=== PATIENT | female | born 1930 | race Caucasian/White ===

== ENCOUNTER 2017-08-08 14:51 | Inpatient (IN) | payer OTHER ==
[2017-08-08] VITALS (7 sets, daily range): BP systolic 124–159; BP diastolic 64–84; Ht 144.8 cm; Wt 53.6 kg
[~2017-08-08] VITALS: Ht 144.8 cm; Wt 53.6 kg
[~2017-08-08 14:51] MED LIST: A/B OTIC15 ML; CLARITIN10 MG PO; CLINDAMYCIN HC300 MG PO; COL100 PO; COUMADIN2 MG PO; DIG125 PO; ESCITALOPRAM10 M1 PO; LAC PO; LEVAQUIN750 MG PO; LISINOPRIL30 MG PO; NORCO1 TA2 PO; PRILOSEC40 MG PO; SINGULAIR10 MG PO; TEN50 PO; XARELTO20 M1 PO
--- NOTE | 2017-08-08 15:09 | NUR ---
EMT AT BEDSIDE FOR EKG
--- NOTE | 2017-08-08 15:10 | NUR ---
DR. WELDON AT BEDSIDE FOR MSE
--- NOTE | 2017-08-08 15:12 | NUR ---
RT AT BEDSIDE FOR ABG DRAW.
--- NOTE | 2017-08-08 15:13 | NUR ---
PT BIB DAUGHTER WITH C/O COUGH AND SOB. DAUGHTER REPORTS PATIENT HAS A DRY NON PRODUCTIVE COUGH. PT HAS RETRACTIONS AND HAS WHEEZES IN ALL MARTIN. PT O2 SAT ON RA IS 96%. PT DENIES ANY N/V/D. NO FEVERS AT HOME. PT IS TACHYPNIC. VITAL. SIGNS STABLE.
--- NOTE | 2017-08-08 15:16 | NUR ---
LAB AT BEDSIDE FOR BLOOD DRAW.
--- NOTE | 2017-08-08 15:38 | NUR ---
RT AT BEDSIDE FOR BREATHING TREATMENT.
--- NOTE | 2017-08-08 15:39 | NUR ---
LAB AT BEDSIDE FOR BLOOD CULTURE DRAW
[2017-08-08 15:41] LABS: BASOPHIL % 0.2 % (0-2); PLATELET COUNT 196 x10^3mcL (130-400); RED CELL DISTRIBUTION WIDTH 13.9 % (11.5-14.5)
[2017-08-08 15:51] LABS: CALCIUM 8.6 mg/dL (8.5-10.1); CARBON DIOXIDE 31.7 mmol/L (21-32); CHLORIDE SERUM 94 mmol/L (98-107); CREATININE SERUM 0.7 mg/dL (0.6-1.0); GLUCOSE SERUM 131 mg/dL (74-106); POTASSIUM SERUM 3.7 mmol/L (3.5-5.1); SODIUM SERUM 131 mmol/L (136-145)
--- NOTE | 2017-08-08 15:53 | NUR ---
RADIOLOGY AT BEDSIDE FOR PCXR
[2017-08-08 16:02] LABS: FREE THYROXINE INDEX 2.4 ug/dL (1.4-4.5); T4(THYROXINE) 6.9 ug/dL (4.7-13.3)
[2017-08-08 16:03] LABS: ALKALINE PHOSPHATASE 74 U/L (46-116); ALT/SGPT 13 U/L (14-59); AST/SGOT 20 U/L (15-37); BILIRUBIN TOTAL 1.3 mg/dL (0.20-1.00); C REACTIVE PROTEIN 11.7 mg/dL (<=0.9); TOTAL PROTEIN, SERUM 7.8 g/dL (6.4-8.2)
--- NOTE | 2017-08-08 16:07 | NUR ---
PT APPEARS TO BE RESTING COMFORTABLY. PT IS STILL TACHYPNIC WITH RETRACTIONS. RESPIRATIONS EVEN. O2 SAT 98% ON RA. VITAL SIGNS STABLE. NO SIGN OF ACCUTE DISTRESS.
[2017-08-08 16:11] LABS: CK-MB 0.9 ng/mL (0-3.6)
[2017-08-08 16:16] LABS: T3 TOTAL 0.78 ng/mL
[2017-08-08 16:26] LABS: ALBUMIN 3.3 g/dL (3.4-5.0)
[2017-08-08 16:33] LABS: ERYTHROCYTE SED RATE 40 mm/hr (0-30)
--- NOTE | 2017-08-08 16:52 | NUR ---
PT LUNG SOUNDS ARE WHEZZY IN ALL MARTIN. PT TACHYPENIC WITH RETRACTIONS. VITAL SIGNS STABLE. NO ACUTE DISTRESS NOTED. DAUGHTER AT BEDSIDE.
--- NOTE | 2017-08-08 17:06 | NUR ---
RT AT BEDSIDE FOR BREATHING TREATMENT.
[2017-08-08 17:40] LABS: MAGNESIUM 1.8 mg/dL (1.8-2.4); PHOSPHOROUS 2.4 mg/dL (2.5-4.9)
[2017-08-08] MEDS ORDERED: HYDROCHLOROTHIA25 MG PO (17:40)
--- NOTE | 2017-08-08 17:52 | NUR ---
REPORT GIVEN TO KOKI ON MED/TELE.
--- NOTE | 2017-08-08 18:00 | NUR ---
RECEIVED PT FROM ED VIA [facility], CAME IN DUE TO SOB AND COUGH. ALERT, AWAKE AND NON-VERBAL, ABLE TO FOLLOW SIMPLE COMMANDS. W/ RIGHT FACIAL DROOP. W/ RIGHT SIDED WEAKNESS. W/ NON-PRODUCTIVE COUGH. NO SOB NOTED, W/ CRACKLES AND WHEEZES NOTED ON AUSCULTATION, PLACED ON 2LPM/NC, O2 SAT=96%. DENIES CHEST PAIN/PRESSURE, NSR ON THE MONITOR. C/O DIARRHEAL EPISODES. W/ MILD SWELLING ON BLE. W/ BLANCHABLE REDNESS ON THE BUTTOCKS. IV SITES ON THE RFA AND LFA ARE PATENT AND INTACT. HOB ELEVATED AT 45 DEG. SIDE RAILS UPX2. CALL LIGHT ON REACH. ENDORSED.
--- NOTE | 2017-08-08 18:27 | NUR ---
PATIENT RESTING IN BED NO COMPLAINT, NO DISTRESS NOTED, IVF NS @ 100ML/HR STARTED ORDERED, DR. BAUTISTA PRESENT AT BEDSIDE INTERVIEW PATIENT; PATIENT NON-VERBAL; DTR NOT PRESENT AT THIS TIME. DTR PHONE # GIVEN TO DOCTOR. CALL LIGHT WITHIN REACH. BED LOW IN POSITION.
--- NOTE | 2017-08-08 19:40 | NUR ---
PT RESTING IN BED. ALERT AND AWAKE. VERBAL WITH SOFT SPEECH. [place]. ON O2 2L VIA NC. LUNGS WITH WHEEZING AND CRACKLES ON AUSCULTATION. RT PROTOCOL. NO S/S OF RESPIRATORY DISTRESS NOTED. ON TELE 14, SR. DENIES ANY CHEST PAIN. ABD SOFT AND FLAT. BOWEL SOUNDS ACTIVE. SKIN WARM AND DRY. IV SALINE LOCK INTACT TO RFA. IV NS INFUSING WELL TO LEFT FA. NO S/S OF INFECTION NOTED. NOTED EDEMA TO BLE. PULSES PALPABLE. DENIES ANY PAIN AT THIS TIME. NO S/S OF DISTRESS NOTED. FAMILY AT BEDSIDE. CALL LIGHT WITHIN REACH. WILL CONTINUE TO MONITOR.
--- NOTE | 2017-08-08 21:15 | NUR ---
RECEIVED CALL FROM [employer] AND STATES PT'S HR ELEVATED AT 130S, THEN WENT UP TO 170S. PT RESTING IN BED WITH EYES CLOSED. NO S/S OF RESPIRATORY DISTRESS NOTED ON O2 2L VIA NC. AROUSED WITH VERBAL AND TACTILE STIMULI. VS: BP 155/73, MAP 100, HR 130, 95% 2L O2 VIA NC. DENIES ANY CHEST PAIN. DR. BAUTISTA NOTIFIED AND AWARE. TENORMIN 25 MG PO GIVEN AND SWALLOWED WITHOUT DIFFICULTY. WILL CONTINUE TO MONITOR.
--- NOTE | 2017-08-08 22:15 | NUR ---
RECHECKED PT'S BP 124/74, MAP 90, HR 90. NO S/S OF DISTRESS NOTED. DR. BAUTISTA NOTIFIED AND AWARE. ALSO, UPDATED REGARDING EKG RESULTS.
--- NOTE | 2017-08-08 23:40 | NUR ---
RECEIVED CALL FROM [employer] STATING PT'S HR IN THE 130S. ARRIVED IN PT'S ROOM. PT RESTING IN BED WITH EYES CLOSED. REMAINS ON O2 2L VIA NC. NO S/S OF RESPIRATORY DISTRESS NOTED. DENIES ANY CHEST PAIN OR ANY PAIN. VS: BP 125/76, HR 129, 97% 2L O2 VIA NC. DR. BAUTISTA NOTIFIED AND AWARE.
--- NOTE | 2017-08-09 00:41 | NUR ---
PT RESTING IN BED WITH EYES CLOSED. BREATHING EQUAL AND UNLABORED. REMAINS ON O2 2L VIA NC. NO S/S OF RESPIRATORY DISTRESS NOTED. IV PATENT AND INFUSING WELL. NO ADVERSE REACTIONS NOTED FROM IV ZOSYN. RESTING COMFORTABLY WITH RELAXED FACIAL FEATURES. CALL LIGHT WITHIN REACH. WILL CONTINUE TO MONITOR.
--- NOTE | 2017-08-09 01:06 | NUR ---
PT'S HR STILL RANGING 120-130S. VS: BP 137/83, HR 130, 95% 2L O2 VIA NC. PT RESTING WITH EYES CLOSED. REMAINS ON O2 2L VIA NC WITH HOB ELEVATED. NO S/S OF RESPIRATORY DISTRESS NOTED. WILL CONTINUE TO MONITOR. DR. BAUTISTA NOTIFIED AND AWARE.
--- NOTE | 2017-08-09 03:30 | NUR ---
PT RESTING IN BED WITH EYES CLOSED. BREATHING EQUAL AND UNLABORED ON O2 2L VIA NC. NO S/S OF RESPIRATORY DISTRESS NOTED. IV PATENT AND INFUSING WELL. RESTING COMFORTABLY WITH RELAXED FACIAL FEATURES. BED IN LOW POSITION. SIDE RAILS UP. BED ALARM ON. CALL LIGHT WITHIN REACH. WILL CONTINUE TO MONITOR.
--- NOTE | 2017-08-09 05:31 | NUR ---
PT SLEPT WELL THROUGH THE NIGHT. CURRENTLY RESTING IN BED WITH EYES CLOSED. BREATHING EQUAL AND UNLABORED ON O2 2L VIA NC. NO S/S OF RESPIRATORY DISTRESS NOTED. DENIES ANY PAIN AT THIS TIME. NO GRIMACING OR MOANING NOTED. IV PATENT AND INFUSING WELL. VS: BP 124/77, HR 130, 98% 2L O2 VIA NC. DR. BAUTISTA NOTIFIED AND AWARE PT'S HR BEEN IN 130S. WILL CONTINUE TO MONITOR.
[2017-08-09 05:59] VITALS: BP 124/77
--- NOTE | 2017-08-09 07:15 | NUR ---
PT SEEN REST ON BED ALERT, ORIENTED TO PERSON. PT NO COMPLAIN OF PAIN AT THIS TIME. PT BREATHING ON O2 2L VIA NC. IV SITE PATENT, INTACT. IVF INFUSING WELL.
[2017-08-09 07:42] LABS: BASOPHIL % 0.1 % (0-2); PLATELET COUNT 170 x10^3mcL (130-400); RED CELL DISTRIBUTION WIDTH 13.7 % (11.5-14.5)
[2017-08-09 07:59] LABS: CALCIUM 8.2 mg/dL (8.5-10.1); CARBON DIOXIDE 28.1 mmol/L (21-32); CHLORIDE SERUM 96 mmol/L (98-107); CREATININE SERUM 0.8 mg/dL (0.6-1.0); GLUCOSE SERUM 166 mg/dL (74-106); MAGNESIUM 1.7 mg/dL (1.8-2.4); PHOSPHOROUS 2.8 mg/dL (2.5-4.9); POTASSIUM SERUM 3.7 mmol/L (3.5-5.1); SODIUM SERUM 134 mmol/L (136-145)
[2017-08-09 10:37] VITALS: BP 154/94
[2017-08-09 10:59] VITALS: BP 129/73
--- NOTE | 2017-08-09 12:31 | NUR ---
PT'S DAUGHTER AT BED SIDE. MADE HER AWARE PT'S ON AIR BORN PRECAUTION. INFECTION CONTROL STAFF MADE AWARE BY CHARGE NURSE.
--- NOTE | 2017-08-09 13:00 | NUR ---
PT IS TRANSFERED FOR AIR BORN PRECAUTION. PT'S REPORT GIVEN TO RECEIVING NURSE. AFB SPECIMEN X3 NOT COLLECTED BY THIS TIMEE AND RECEIVING NURSE AWARE. PT'S DAUGHTER AT BED SIDE. PER PT'S DAUGHTER 'S STATEMENT THAT PT IS HAVING PRODUCTIVE COUGH BUT NOT ABLE TO CLEAR SPUTUM BY COUGHING AND NO BLOOD COUGHING OUT SO FAR.
--- NOTE | 2017-08-09 13:13 | NUR ---
RECEIVED PT TRANSFER FROM [facility]. PT'S DAUGHTER AT BEDSIDE. NO APPARENT SIGNS OF ACUTE DISTRESS NTOED AT THIS TIME. IV TO RFA APPEARS PATENT AND INFUSING WELL. IVPB MG RIDER RUNNING AT THIS TIME. TELE #14 SHOWS HR OF 107, A SYMPTOMATIC. R SIDED WEAKNESS TO RUE, WITH CONTRACTURE TO RT HAND. CALL LIGHT WITHIN REACH. BED IN LOWEST POSITION. WILL CONTINUE TO MONITOR
--- NOTE | 2017-08-09 15:20 | NUR ---
ATTEMPTED TO COLLECT FIRST SPECIMEN OF AFB WITH RT VIA SUCTION, BUT WAS UNSUCCESSFUL. WILL ATTEMPT TO COLLECT SPUTUM AGAIN AT A LATER TIME. PT APPEARS EXHAUSTED AND WILL ALLOW FOR REST UNTIL NEXT TRY. CALL LIGHT WITHIN REACH. BED IN LOWEST POSITION. UA, LYTES, AND OSMALALITY COLLECTED AND SENT TO THE LAB. WILL CONTINUE TO MONITOR
[2017-08-09 16:06] LABS: microscopic required? YES; urine erythrocyte TRACE (NEGATIVE)
--- NOTE | 2017-08-09 16:32 | NUR ---
LEADS REPLACED. PT APPEARS TO BE HALF ASLEEP AND TIRED. AWAITING CT TO COME AND BARK FITTER PT. STATED THEY WOULD COME AROUND [phone]. PT HAS BEEN NPO SINCE AFTER HER LUNCH, WHICH WAS A BOWL OF SOUP AND JUICE
--- NOTE | 2017-08-09 17:37 | NUR ---
PPD GIVEN TO PT IN THE LFA. PT APPEARED TO TOLERATE WELL. WILL ENDORSE TO ONCOMING NURSE
[2017-08-09 17:45] VITALS: BP 149/59
--- NOTE | 2017-08-09 17:51 | NUR ---
RT RETURNED TO ATTEMPT TO COLLECT AFB SAMPLE AND WERE SUCCESSFUL. WILL SEND TO LAB
--- NOTE | 2017-08-09 18:00 | NUR ---
PT TAKEN DOWN FOR CT OF THE CHEST. NO APPARENT SIGNS OF ACUTE DISTRESS AT THIS TIME
--- NOTE | 2017-08-09 19:30 | NUR ---
PATIENT RECEIVED AWAKE, ALERT, AND ORIENTED TO SELF. FAMILY AT BEDSIDE. NO RESP DISTRESS NOTED. PATIENT DENIES SOB. IV SITE TO RIGHT FOREARM, LEAKING. WILL DC AND REINSERT. BED IN LOWEST POSITION. CALL LIGHT WITHIN REACH. WILL CONTINUE TO MONITOR.
[2017-08-09 20:35] VITALS: BP 136/54
[2017-08-10] VITALS (9 sets, daily range): BP systolic 122–212; BP diastolic 61–109
--- NOTE | 2017-08-10 05:01 | NUR ---
PATIENT RESTED THROUGHOUT THE NIGHT. NO DISTRESS NOTED. NO C/O SOB. NO RESP DISTRESS NOTED. ALL NEEDS MET. SAFETY AND COMFORT MEASURES MAINTAINED. BED IN LOWEST POSITION. CALL LIGHT WITHIN REACH. WILL CONTINUE TO MONITOR AND ENDORSE TO NEXT SHIFT NURSE.
--- NOTE | 2017-08-10 07:35 | NUR ---
SIZE STAMPER CALLED TO REPORT HR 130'S. PT AWAKE, EASILY AROUSABLE. RESP LABORED, AUDIBLE CRACKLES BILATERALLY WITH CONGESTED COUGH. RT PAGED FOR BREATHING TREATMENT. SAT 94% IN O2 @ 2L/MIN VIA NC. IV ON RFA, 20G, INTACT. INFUSING NS AT 93 ML/HR. ABD SOFT WITH ACTIVE BS IN ALL QUADS. INCONTINENT OF URINE, LINENS CHANGED AND GOOD PERICARE PROVIDED. FALL PRECAUTIONS IN PLACE. ON AIRBORNE ISOLATION PRECAUTIONS R/O TB. DENIES ANY PAIN OR DISCOMFORT AT THIS TIME. WILL CONTINUE TO MONITOR.
--- NOTE | 2017-08-10 07:45 | NUR ---
HR 141 ON MONITOR. PO DIGOXIN AND ATENOLOL GIVEN EARLY. VS: 98.6, 141, 22, 189/108, SAT 100% ON O2 @ 2L/MIN VIA NC. PT C/O MILD EPIGASTRIC DISCOMFORT. DENIES ANY CP/HARDY/DIZZINESS AT THIS TIME. DR WEIR PAGEGATED, AWAITING NEW ORDERS.
--- NOTE | 2017-08-10 07:58 | NUR ---
SPOKE WITH DR WEIR REGARDING HR, CURRENTLY 148 ON MONITOR WITH 1 EPISODE OF SVT UP TO 170'S. AWAITING NEW ORDERS.
--- NOTE | 2017-08-10 08:11 | NUR ---
RECEIVED NEW ORDER FOR CARDIZEM IV. CONVERTED TO AFIB/AFLUTTER, HR 98, PRIOR TO ADMINISTRATION, NOT GIVEN. DR WEIR AWARE. BP 165/99. PT DENIES ANY PAIN OR DISCOMFORT AT THIS TIME.
--- NOTE | 2017-08-10 09:02 | NUR ---
PT FOUND PALE/DIAPHORETIC AND TACHYPNEIC. EXTREMELY LABORED BREATHING WITH ACCESORY MUSCLE USE. AUDIBLE CRACKLES. RT AT BEDSIDE, PT PLACED ON BIPAP, SAT 94%. BP 212/109, HR 100. DR WEIR PAGED TO MAKE AWARE, AWAITING CALL BACK.
--- NOTE | 2017-08-10 09:07 | NUR ---
CALLED RESIDENT CALL PHONE. DR RAHMAN AND DR WEIR AT BEDSIDE TO EVALUATE. PT CURRENTLY ON BIPAP 12/, 18, FIO2 40%. O2 SAT 100%. RECEIVED NEW ORDER FOR SINGH AND LASIX IV.
--- NOTE | 2017-08-10 09:17 | NUR ---
MORPHINE IV AND LASIX IV GIVEN ORDERED, SEE EMAR. DR WEIR AND DR RAHMAN AT BEDSIDE. BP AFTER MEDS: 147/73, HR 94. PT AROUSABLE, OPENING EYES AND FOLLOWING COMMANDS. WILL CONTINUE TO MONITOR CLOSELY.
--- NOTE | 2017-08-10 09:20 | NUR ---
SINGH CATHETER INSERTED ORDERED, 16F. STERILE TECHNIQUE MAINTAINED. PT TOLERATED WELL.
--- NOTE | 2017-08-10 09:20 | NUR ---
SINGH CATHETER INSERTED ORDERED, 16F. STERILE TECHNIQUE MAINTAINED. PT TOLERATED WELL.
[2017-08-10 09:45] LABS: BASOPHIL % 0.3 % (0-2); PLATELET COUNT 209 x10^3mcL (130-400); RED CELL DISTRIBUTION WIDTH 13.9 % (11.5-14.5)
[2017-08-10 10:02] LABS: CALCIUM 7.4 mg/dL (8.5-10.1); CARBON DIOXIDE 28.9 mmol/L (21-32); CHLORIDE SERUM 97 mmol/L (98-107); CREATININE SERUM 0.8 mg/dL (0.6-1.0); GLUCOSE SERUM 174 mg/dL (74-106); POTASSIUM SERUM 3.3 mmol/L (3.5-5.1); SODIUM SERUM 133 mmol/L (136-145)
--- NOTE | 2017-08-10 10:37 | NUR ---
EKG SHOWS AFIB/AFLUTTER, DR WEIR AWARE. PT CURRENTLY ON XARELTO PO.
--- NOTE | 2017-08-10 11:35 | NUR ---
AIRBORNE PRECAUTIONS DC'D ORDERED.
--- NOTE | 2017-08-10 12:55 | NUR ---
PT CHANGED TO NC AT 3L/MIN BY RT, SAT 96%. PT TOLERATING WELL, RESP EVEN AND UNLABORED.
--- NOTE | 2017-08-10 13:05 | NUR ---
LACTIC ACID 2.6. DR WEIR MADE AWARE.
--- NOTE | 2017-08-10 14:30 | NUR ---
PT'S DAUGHTER VISITING AT BEDSIDE. PT REMAINS ON O2 @ 3L/MIN VIA NC, SAT 96% AND TOLERATING WELL.
--- NOTE | 2017-08-10 15:26 | NUR ---
INFECTION CONTROL NOTE: 86 year old female who was considered possible TB after abnormal chest x-ray. Patient had cough for 2 days prior to arrival and is negative for night sweats, weight loss or hemoptysis. CT scan done 08/09/17 shows " No definate evidence for cavitary lesions of the lung." There is atelectasis in the right lower lobe. Review by Dr Hoang on 08/09/17 States " No evidence of TB" and a diagnosis of aspiration pneumonia. [facility]
--- NOTE | 2017-08-10 15:40 | NUR ---
PT PLACED ON LOW AIR LOSS MATTRESS
--- NOTE | 2017-08-10 17:30 | NUR ---
PT ENCOURAGED TO EAT, CONTINUES WITH VERY POOR APPETITE. PT STATES SHE DOES NOT FEEL LIKE EATING.
--- NOTE | 2017-08-10 18:08 | NUR ---
PT RESTING COMFORTABLY, REMAINS ON O2 @ 3L/MIN VIA NC, SAT 98%. SINGH CATHETER DRAINING TO GRAVITY WITH PALE YELLOW URINE. DENIES ANY OTHER NEEDS AT THIS TIME. CALL LIGHT WITHIN REACH.
--- NOTE | 2017-08-10 20:38 | NUR ---
AWAKE AND VERBALLY RESPONSIVE. ABLE TO MAKE NEEDS KNOWN. ON TELE #14WITH PACED ON DEMENAD,IN AND OUT A-FB/FLUTTER. AWARE. DENEIS ANY CHEST PAIN/DISCOMFORT. ON 02 AT 3L/NC SATURATING AT 98%. NO SOB NOTED. WILL CONTINUE TO MONITOR.
[2017-08-11] VITALS (7 sets, daily range): BP systolic 138–180; BP diastolic 60–86
--- NOTE | 2017-08-11 00:01 | NUR ---
EYES CLOSED, NO FACIAL GRIAMCING NOTED. RESPIRATION EVEN AND UNLABORED. NO S/S OF PAIN/DISCOMFORT. BED IN LOWEST POSITION. CALL LIGHT WITHIN REACH.
--- NOTE | 2017-08-11 04:51 | NUR ---
BS =114, NO INSULIN COVERAGE GIVEN. NO S/S OF PAIN/DISCOMFORT. ALL NEEDS ATTENDED.
[2017-08-11 06:20] LABS: CALCIUM 7.7 mg/dL (8.5-10.1); CARBON DIOXIDE 33.2 mmol/L (21-32); CHLORIDE SERUM 100 mmol/L (98-107); CREATININE SERUM 0.7 mg/dL (0.6-1.0); GLUCOSE SERUM 116 mg/dL (74-106); MAGNESIUM 1.8 mg/dL (1.8-2.4); PHOSPHOROUS 2.1 mg/dL (2.5-4.9); POTASSIUM SERUM 3.8 mmol/L (3.5-5.1); SODIUM SERUM 137 mmol/L (136-145)
[2017-08-11 06:30] LABS: PLATELET COUNT 163 x10^3mcL (130-400); RED CELL DISTRIBUTION WIDTH 14.1 % (11.5-14.5)
[2017-08-11 06:52] LABS: BASOPHIL % 0 % (0-2)
--- NOTE | 2017-08-11 07:40 | NUR ---
REASSESSMENT DONE. PT IN FOWLERS. NO S/S OF PAIN. CRACKLES TO LEFT UPPER, LOWER LOBES ON AUSCULTATION. SINGH CATHETER IN PLACE 200ML YELLOW DARK. PT ON AIR MATTRESS. RIGHT HAND CONTRACTURE. IV INFUSING WELL TO RFA #20. BED IN LOWEST POSITION, CALL LIGHT WITHIN REACH.
--- NOTE | 2017-08-11 09:40 | NUR ---
PT WHEEZING BILAT WITH CRACKLES. BIPAP STARTED. PT TOLERATING THERAPY WELL.
--- NOTE | 2017-08-11 11:10 | NUR ---
PT ON BIPAP, WHEEZING BILAT, CRACKLES ON LEFT LOWER LOBE. IV INFUSING AT 20ML/HR. CALL LIGHT WITHIN REACH. FAMILY AT BEDSIDE.
--- NOTE | 2017-08-11 12:45 | NUR ---
PT OFF BIPAP. RR:18 NO DISTRESS AT MOMENT. EFFORTLESS BREATHING 3LNC. SPEECH THERAPIST IN FOR SWALLOW EVAL PT TOLERATING ACTIVITY. CALL LIGHT WITHIN REACH.
--- NOTE | 2017-08-11 13:20 | NUR ---
S: PATIENT SEEN DURING NOON MEAL. 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 VOCAL QUALITY HOARSE AND OF LOW VOLUME O: BEDSIDE SWALLOW EVALUATION A: PATIENT PRESENTS WITH MILD/MOD OROPHARYNGEAL PHASE DYSPHAGIA NO OVERT S/S OF ASPIRATION WITH PUREE/NECTAR THICK FOOD HX OF WEIGHT LOSS/MALNUTRITION DECREASED MENTATION INCREASED CONSOLIDATION IN RLL, BUT NO CONFIRMATION OF INFILTRATE, INSTEAD LUNG EMPYEMA/ATELECTASIS MISSING TEETH NASAL CANNULA, C/O OF SHORTNESS OF BREATH AND TODAY PATIENT COMPLAINED OF SHORTNESS OF BREATH WHILE EATING HER MEAL. P: ADVANCE DIET TO PUREE WITH NECTAR THICK LIQUIDS NO STRAWS ASPIRATION PRECAUTIONS/POSTED AT BEDSIDE CRUSH CRUSHABLE MEDS/PRESENT IN PUREE SUPERVISED P.O. IF PATIENT BECOMES SHORT OF BREATH DURING THE MEAL, STOP/RELAX, THEN RESUME MEAL STOP P.O. IF RESPIRATION RATE IS AT 30 BPM OR GREATER DIETARY CONSULT IN LIGHT OF HISTORY OF MALNUTRITION/WEIGHT LOSS THANK YOU FOR THIS REFERRAL. NO FURTHER SKILLED ST SERVICES ARE NEEDED AT THIS TIME. SARA MARCANO MA/MSLP
--- NOTE | 2017-08-11 17:20 | NUR ---
PT DENIES PAIN AT MOMENT, DENIES SOB, ON 3LNC WITH EFFORTLESS BREATHING. TOLERATING DIET WELL. SINGH CATH PATENT AND DRAINING WELL. IV PATENT, AND INFUSING WELL, BED IN LOWEST POSITION, CALL LIGHT WITHIN REACH.
--- NOTE | 2017-08-11 19:10 | NUR ---
AO X2-3. KOSOVAN SPEAKING. FAMILY MEMBER AT BEDSIDE. TELE #14, NSR WITH 1ST DEGREE. CRACKLES HEARD OVER LEFT LUNG, RIGHT LUNG CLEAR. ON NC @ 3L. RADIAL AND PEDAL PULSES PALPABLE, TRACE EDEMA TO BLE. BOWEL SOUNDS ACTIVE. SINGH CATHETER PRESENT, DARK YELLOW. RIGHT SIDED WEAKNESS WITH RIGHT SIDE FACIAL DROOP AND RIGHT HAND CONTRACTURE. BLANCHABLE REDNESS TO BUTTOCKS, HYDRAGUARD APPLIED. NO PAIN. NS @ 50 ML/HR TO RIGHT HAND, NO REDNESS OR SWELLING. BED IN LOW POSITION, CALL LIGHT IN REACH. INSTRUCTED TO CALL FOR ASSISTANCE.
[2017-08-12] VITALS (7 sets, daily range): BP systolic 136–190; BP diastolic 67–89
--- NOTE | 2017-08-12 00:56 | NUR ---
BREATHING EVEN AND UNLABORED, NO ACUTE DISTRESS NOTED. WILL CONTINUE TO MONITOR.
[2017-08-12 05:58] LABS: BASOPHIL % 0.4 % (0-2); PLATELET COUNT 181 x10^3mcL (130-400); RED CELL DISTRIBUTION WIDTH 13.4 % (11.5-14.5)
--- NOTE | 2017-08-12 06:08 | NUR ---
0500 B/P 177/70, GAVE [address] PEOPLES[address] NO OTHER ACUTE CHANGES DURING SHIFT. WILL ENDORSE TO ONCOMING RN.
[2017-08-12 06:25] LABS: CHLORIDE SERUM 99 mmol/L (98-107); CREATININE SERUM 0.5 mg/dL (0.6-1.0); GLUCOSE SERUM 108 mg/dL (74-106); PHOSPHOROUS 2.7 mg/dL (2.5-4.9); POTASSIUM SERUM 3.7 mmol/L (3.5-5.1); SODIUM SERUM 134 mmol/L (136-145)
--- NOTE | 2017-08-12 08:45 | NUR ---
DR. LARA MADE ROUNDS WITH OTHER MEDICAL STAFF. UPDATED PT. PLAN OF CARE.
--- NOTE | 2017-08-12 10:45 | NUR ---
AWAKE ALERT ORIENTED WITH PERIODS OF FORGETFULLNESS. PT. IS COOPERATIVE WITH STAFF. NO ACUTE RESPIRATORY DISTRESS NOTED. LEFT LUNG CRACKLES, RIGHT LUNG CLEAR. DENIES CHEST PAIN. SINGH CATHETER DRAINING YELLOW COLOR. RIGHT SIDED WEAKNESS, RIGHT HAND CONTRACTURE. IV INFUSING FLUIDS WELL. CONT. NC 3L.CONT. PLAN OF CARE. CALL LIGHT WITHIN REACH.
--- NOTE | 2017-08-12 11:05 | NUR ---
PT TAKEN OFF O2 FOR 10 MINUTES FOR HOME O2 EVALUATION. SPO2 98% POST 10 MINUTES. PT STATED THAT SHE COULD NOT WALK AND WAS UNABLE TO PERFORM AMBULATION FOR HOME O2. DOCUMENTED IN HOME O2 EVALUATION INTERVENTION. PT PLACED BACK ON O2. WILL MONITOR.
--- NOTE | 2017-08-12 13:50 | NUR ---
NOTED B/P 190/78 NOTIFIED AND MADE AWARE W/ ORDERS RECIEVED AND CARRIED OUT.PT. ASSYMPTOMATIC.NO DIZZINESS,DENIES ANY PAIN.
--- NOTE | 2017-08-12 13:57 | NUR ---
PT. B/P NOTED 190/ NITROSTAT 0.4 MG SL GIVEN ORDERED FOR ELEVATED B/P. WILL CONT. TO MONITOR PT.MADE PT. COMFORTABLE IN BED. CALL LIGHT W/ IN REACH.
--- NOTE | 2017-08-12 14:21 | NUR ---
PT. FAMILY AT BEDSIDE.NO ACUTE DISTRESS NOTED.
--- NOTE | 2017-08-12 14:30 | NUR ---
RE- CHECKED B/P 143/69 DENIES ANY PAIN AT THIS TIME.RESTING COMFORTABLY IN BED. CALL LIGHT W/ IN REACH.
--- NOTE | 2017-08-12 15:02 | NUR ---
PT. AMBULATED W/ P.T. ASSIST. W/ WALKER PT IS ON RA .AFTER AMBULATION CHECKED 02 SAT 93% NO ACUTE DISTRESS NOTED.
[2017-08-12] MEDS ORDERED: LEVAQUIN750 MG PO (16:15)
[2017-08-12] MEDS ORDERED: CLINDAMYCIN HC150 MG PO (16:19)
[2017-08-12] MEDS ORDERED: LAC PO (16:20)
[2017-08-12] MEDS ORDERED: D25 PO (16:22)
[2017-08-12] MEDS ORDERED: LIPI10 PO (16:38)
[2017-08-12] MEDS ORDERED: ZES10 PO (16:38)
--- NOTE | 2017-08-12 17:00 | NUR ---
DR. HAGAN HERE AND SEEN THE PT. W/ NEW ORDERS MADE OK PT.T O GO HOME TODAY PT/MARYBETH MADE AWARE AND AWAITING FOR RIDE.
--- NOTE | 2017-08-12 18:50 | NUR ---
PT. WENT HOME W/ STABLE CONDITION PER W/C ACC. W/ HER DAUGHTER ,DISCHARGED INSTRUCTIONS AND PRESCRIPTION GIVEN AND DISCUSSED TO PT/DAUGHTER AND VERBALIZED UNDERSTANDING OF INSTRUCTIONS GIVEN NO ACUTE DISTRESS NOTED.ESCORTED BY LAVELLE IN THE LOBBY.
== END 2017-08-12 18:42 | disposition home or self-care (01) | DRG 871 ==
LOC: ED 14:51 → DU 17:17
PROVIDERS: Family Medicine; Specialist; ADMIT Student in an Organized Health Care Education/Training Program
DX: A41.9 Sepsis, unspecified organism (principal); I50.43 Acute on chronic combined systolic (congestive) and diastolic (congestive) heart failure; J69.0 Pneumonitis due to inhalation of food and vomit; J96.00 Acute respiratory failure, unspecified whether with hypoxia or hypercapnia; E87.1 Hypo-osmolality and hyponatremia; E44.1 Mild protein-calorie malnutrition; I48.91 Unspecified atrial fibrillation; R73.03 Prediabetes; R65.20 Severe sepsis without septic shock; K44.9 Diaphragmatic hernia without obstruction or gangrene; J44.9 Chronic obstructive pulmonary disease, unspecified; I10 Essential (primary) hypertension; E87.8 Other disorders of electrolyte and fluid balance, not elsewhere classified; E83.39 Other disorders of phosphorus metabolism; E78.5 Hyperlipidemia, unspecified; E02 Subclinical iodine-deficiency hypothyroidism; Z95.0 Presence of cardiac pacemaker; I69.320 Aphasia following cerebral infarction; Z68.25 Body mass index [BMI] 25.0-25.9, adult; I69.331 Monoplegia of upper limb following cerebral infarction affecting right dominant side
CPT/HCPCS: 36600; 82962; 83880; 84439; 86480; 86580; 87116; 87206; 92610; J1940; J2270; J2543; J2930; J3475; J3480; J3490; J7030; J7613; J7620; J7644; Q0092; Q9967

== ENCOUNTER 2019-04-02 16:44 | Inpatient (IN) | payer OTHER ==
[~2019-04-02] VITALS: Ht 152.4 cm; Wt 50.5 kg
[~2019-04-02 16:44] MED LIST changes: +CLINDAMYCIN HC150 MG PO; +D25 PO; +HYDROCHLOROTHIA25 MG PO; +LIPI10 PO; +ZES10 PO
--- NOTE | 2019-04-02 16:55 | NUR ---
APPLE JAMES CARRIED PT ONTO MARIO IN BD 3.
--- NOTE | 2019-04-02 16:57 | NUR ---
PT TAKEN TO ROOM 3 VIA HER OWN W/C, PT AWAKE WITH ESTELLA EYES OPEN, PER DTR PT IS NON VERBAL FROM PREVIOUS CVA WITH DEFICITS NOTED. DR MAE AT BEDSIDE EXAMINING PT, CODE BRAIN CTA ACTIVATED.
--- NOTE | 2019-04-02 17:04 | NUR ---
REC'D A 88/F IN RM 3 WITH C/O LEFT FACIAL DROOP SINCE 11AM TODAY. PER PT'S DAUGTHER, PT DRINKS SMOOTHIE EVERYDAY, HOWEVER, UNABLE TO SWALLOW SMOOTHIE TODAY. PT USUALLY AMBULATES WITH WALKER, HOWEVER UNABLE TO AMBULATE SINCE 11AM. HX OF OLD STROKE 10 YEARS AGO, RIGHT SIDED DEFICIT, NONVERBAL. PER PT DAUGTHER, LEFT LEG IS USUALLY STRONGER, PT UNABLE TO RAISE LEFT LEG. PT ALERT AND AWAKE, NONVERBAL, RESP E/U, IN NO ACUTE DISTRESS. +RAISE LEFT ARM, -UNABLE TO RAISE LEFT LEG, +LEFT FACIAL DROOP. DAUGTHER AT BEDSIDE.
--- NOTE | 2019-04-02 17:10 | NUR ---
LAB AT BEDSIDE.
[2019-04-02] MEDS ORDERED: NATURE'S BLEND400 I2 PO (17:13)
[2019-04-02] MEDS ORDERED: ZESTRIL40 MG (17:14)
[2019-04-02] MEDS ORDERED: XARELTO10 M1 PO (17:15)
[2019-04-02] MEDS ORDERED: DIGITEK125 MCG (17:15)
--- NOTE | 2019-04-02 17:28 | NUR ---
PT TAKEN TO CT VIA RNISHI.
[2019-04-02 17:41] LABS: BASOPHIL % 0.4 % (0-2); PLATELET COUNT 178 x10^3mcL (130-400); RED CELL DISTRIBUTION WIDTH 13.4 % (11.5-14.5)
[2019-04-02 17:46] LABS: CALCIUM 9.1 mg/dL (8.5-10.1); CARBON DIOXIDE 28.7 mmol/L (21-32); CHLORIDE SERUM 100 mmol/L (98-107); CREATININE SERUM 0.6 mg/dL (0.6-1.0); GLUCOSE SERUM 87 mg/dL (74-106); POTASSIUM SERUM 4.4 mmol/L (3.5-5.1); SODIUM SERUM 133 mmol/L (136-145)
[2019-04-02 17:51] LABS: ALKALINE PHOSPHATASE 83 U/L (46-116); ALT/SGPT 16 U/L (14-59); AST/SGOT 15 U/L (15-37); BILIRUBIN TOTAL 0.81 mg/dL (0.20-1.00); TOTAL PROTEIN, SERUM 7.3 g/dL (6.4-8.2)
[2019-04-02 17:54] LABS: ALBUMIN 3.3 g/dL (3.4-5.0)
--- NOTE | 2019-04-02 17:55 | NUR ---
PT LEAVING VIA GUERNEY FOR CTA WITH SIDERAILS UP FOR SAFETY, PT AWAKE RESP EVEN AND UNLABORED NO DISTRESS
--- NOTE | 2019-04-02 18:08 | NUR ---
PT BACK FROM CT AWAKE TO ROOM 3 SIDERAILS UP FOR SAFETY VITALS TAKEN
--- NOTE | 2019-04-02 18:39 | NUR ---
PT LAYING IN ED GURNEY IN POSITION OF COMFORT, AWAKE, RESPS EVEN AND UNLABORED, SKIN WARM/DRY TO TOUCH, NO S/S OF DISTRESS NOTED. DAUGHTER AT BEDSIDE.
--- NOTE | 2019-04-02 19:00 | NUR ---
TELE PSYCH MONITOR PLACED AT BEDSIDE.
--- NOTE | 2019-04-02 19:01 | NUR ---
PENDING NEUROLOGY REPORT BEFORE ADMINISTERING ASPIRIN.
--- NOTE | 2019-04-02 19:43 | NUR ---
DURING NEURO ASSESSMENT WITH DR ANDINO (NEUROLOGIST), PT ABLE TO RAISE ESTELLA LEGS FOR 5 SECONDS.
--- NOTE | 2019-04-02 20:15 | NUR ---
PT SOILED GURNEY, REMOVED DIAPER, CHANGED BEDDING, AND CLEANED PT.
--- NOTE | 2019-04-02 20:17 | NUR ---
PT SOILED GURNEY, REMOVED DIAPER, CHANGED BEDDING, AND CLEANED PT.
--- NOTE | 2019-04-02 20:20 | NUR ---
RECEIVED PT FROM ED VIA ImpresstoERNEY, CAME IN DUE TO LEFT FACIAL DROOP THAT STARTED AT 11AM-12PM. ALERT, AWAKE, NON-VERBAL, ABLE TO FOLLOW SIMPLE COMMANDS, W/ LEFT FACIAL DROOP, RIGHT SIDED WEAKNESS. LEFT HAND SHIM PLUG CUTTER IS STRONG, NO ARM DRIFT NOTED ON LUE. LUNG SOUNDS DIMINISHED ON AUSCULTATION, O2 SAT=98% ON 2LPM/NC. DENIES CHEST PAIN/PRESSURE, PACED ON THE MONITOR. DENIES ABDOMINAL DISCOMFORT. BOWEL SOUNDS ACTIVE. PER PT'S DAUGHTER, PT STARTED TO HAVE DIFFICULTY SWALLOWING EARLIER. VOIDS. IV SITES ON THE RIGHT HAND AND RFA ARE PATENT AND INTACT. SIDE RAILS UPX2. CALL LIGHT ON REACH. HOB ELEVATED AT 40 DEG. PT'S DAUGHTER AT BEDSIDE. ENDORSED TO PRIMARY NURSE CHEKO FOR CONTINUITY OF CARE
--- NOTE | 2019-04-02 20:26 | NUR ---
REPORT GIVEN TO MATTHEW STILL TO ASSUME CARE OF THE PT.
--- NOTE | 2019-04-02 20:27 | NUR ---
REPORT GIVEN TO MATTHEW STILL TO ASSUME CARE OF THE PT.
[2019-04-02 20:35] LABS: CHOLESTEROL/HDL RATIO 2.6; MAGNESIUM 1.9 mg/dL (1.8-2.4); PHOSPHOROUS 3.3 mg/dL (2.5-4.9)
[2019-04-02 20:51] VITALS: BP 157/109
[2019-04-02 21:00] VITALS: Ht 152.4 cm; Wt 50.5 kg
--- NOTE | 2019-04-02 23:00 | NUR ---
RESTING QUIETLY IN BED, WITH EYES CLOSED, APPEARS ASLEEP, EASILY AROUSABLE. RESP. EVEN AND UNLABORED.NO ACUTE DISTRESS NOTED. STARTED ON IVF, NS AT 50ML/HR, INFUSING VIA RH, SITE CLEAR. CALL LIGHT WITHIN REACH. WILL CONTINUE TO MONITOR.
[2019-04-03 05:17] VITALS: BP 150/82
--- NOTE | 2019-04-03 06:20 | NUR ---
AFEBRILE AND VITAL SIGNS STABLE. RESP. EVEN AND UNLABORED. NO ACUTE DISTRESS NOTED. DENIES CP OR ANY DISCOMFORT AT THIS TIME. IVF INTACT AND INFUSING WELL, SITE CLEAR. TURNED AND REPOSITIONED WITH ASSIST. CALL LIGHT WITHIN REACH. WILL CONTINUE TO MONITOR.
[2019-04-03 06:27] LABS: BASOPHIL % 1.1 % (0-2); PLATELET COUNT 171 x10^3mcL (130-400); RED CELL DISTRIBUTION WIDTH 13.6 % (11.5-14.5)
--- NOTE | 2019-04-03 07:15 | NUR ---
PT AWAKE NONE VERBAL. ABLE TO FOLLOW SIMPLE COMMAND.L FACIAL DROOP NOTED. LUNG SOUND DIM ON THE BASES.R HAND CONTRACTED.ALSO WITH R SIDE WEAKNESS.IVF NS GOING AT 50 ML/HR INFUSING WELL.CALL LIGHT WITHIN REACH.HOB AT 30 DEG ANGLE FOR ASPIRATION PRECAUTION.FREQUENT CHECKS IMPLEMENTED.WILL CONTINUE TO MONITOR PT.
[2019-04-03 07:17] LABS: CARBON DIOXIDE 28.1 mmol/L (21-32); CHLORIDE SERUM 100 mmol/L (98-107); CREATININE SERUM 0.6 mg/dL (0.6-1.0); GLUCOSE SERUM 89 mg/dL (74-106); MAGNESIUM 1.9 mg/dL (1.8-2.4); PHOSPHOROUS 3.4 mg/dL (2.5-4.9); POTASSIUM SERUM 4.1 mmol/L (3.5-5.1); SODIUM SERUM 136 mmol/L (136-145)
[2019-04-03 07:30] LABS: microscopic required? NO
[2019-04-03 07:44] LABS: urine erythrocyte NEGATIVE (NEGATIVE)
--- NOTE | 2019-04-03 09:00 | NUR ---
UNABLE TO GIVE AM MEDS DUE TO PT UNABLE TO SWALLOW.INFORMED .CHANGE DIET TO COMPLETELY NPO.
[2019-04-03 09:14] VITALS: BP 166/99
--- NOTE | 2019-04-03 12:16 | NUR ---
CALLED TO AND MADE AWARE OF THE RESULTS OF THE CT SCAN ABD/PELVIS.
[2019-04-03 13:21] VITALS: BP 139/69
--- NOTE | 2019-04-03 15:32 | NUR ---
PT WAS SEEN FOR DYSPHAGIA. PT WAS ABLE TOS AFELYS WALLOW PUREE DIET WITH HTL WITHOUT S/S OF ASPIRATION. PT HAD MILD COUGH FOR NTL. RECOMMENDATION PUREE DIET WITH NTL. SMALL BITES AND SIPS ONLY.
--- NOTE | 2019-04-03 15:56 | NUR ---
SWALLOW EVAL DONE. PER SPEECH THERAPIST RECOMMENDATION, PT NEEDS TO BE ON PUREED AND HONEY THICK LIQUIDS.
[2019-04-03 16:49] VITALS: BP 140/74
--- NOTE | 2019-04-03 18:40 | NUR ---
PT ATE 75% OF DINNER TOLERATED IT WELL.NO SIGNIFICANT CHANGE NOTED.WILL ENDORSE TO NEXT SHIFT.
--- NOTE | 2019-04-03 19:05 | NUR ---
REPORT RECEIVED FROM DAY SHIFT RN. PATIENT WAS SEEN AND IS RESTING IN BED WITH FAMILY AT BEDSIDE. NONVERBAL, BUT UNDERSTANDS WHEN SPOKEN TO AND ATTEMPTS TO SPEAK. MILD RIGHT FACIAL DROOP. DENIES PAIN. BREATHING EVEN ON ROOM AIR. NO SOB OR RESP DISTRESS NOTED. IV TO THE RFA INFUSING WELL. PATENT AND INTACT. NO REDNESS OR SWELLING NOTED. RIGHT SIDED WEAKNESS NOTED WITH RIGHT HAND CONTRACTED. COMFORT AND SAFETY MEASURES MAINTAINED. BED IS LOCKED AND IN THE LOWEST POSITION. SIDE RAILS UP X2. CALL LIGHT IS WITHIN REACH. WILL CONTINUE TO MONITOR.
--- NOTE | 2019-04-03 20:10 | NUR ---
COLACE IS PO. PATIENT CAN'T SWALLOW MEDS AND COLACE CANNOT BE CRUSHED. PAGE GATED DR BROWN FOR LIQUID FORM OF COLACE. NEW NEW ORDERS AT THIS TIME.
--- NOTE | 2019-04-03 20:42 | NUR ---
PHILLIP TELE CONSULT WAS DONE IN THE ED. ASKED DR BROWN IF HE WANTED A FOLLOW UP AND HE SAID NO. WILL CONTINUE TO MONITOR AND PATIENT. IMFORMED FAMILY WELL.
[2019-04-03 21:06] VITALS: BP 142/80
--- NOTE | 2019-04-03 21:12 | NUR ---
PATIENT WAS ABLE TO SWALLOW CRUSH MEDS. PATIENT WAS ABLE TO RESPOND TO QUESTIONS BY NODDING HER HEAD. FAMILY AT BEDSIDE. HOB ELEVATED FOR ASPIRATION PRECAUTIONS. TOLERATED MEDS WELL. CALL LIGHT IS WITHIN REACH. WILL CONTINUE TO MONITOR. NO DISTRESS NOTED. BREATHING EVEN.
--- NOTE | 2019-04-04 00:26 | NUR ---
PATIENT IS RESTING IN BED WITH EYES CLOSED. NO DISTRESS NOTED. BREATHING EVEN ON ROOM AIR. NO S/S OF PAIN. CALL LIGHT IS WITHIN REACH. COMFORT AND SAFETY MEASURES MAINTAINED. WILL CONTINUE TO MONITOR.
[2019-04-04 05:27] VITALS: BP 143/80
--- NOTE | 2019-04-04 05:50 | NUR ---
PATIENT SLEPT IN LONG INTERVALS THROUGHOUT THE NIGHT. NO ACUTE/SIGNIFICANT CHANGES NOTED. ON ROOM AIR, PATIENT WAS SATING AT 91%. PLACED 2L NC ON PATIENT AND SHE IS SATING AT 98%. NO SOB OR RESP DISTRESS NOTED. NO S/S OF PAIN. PATIENT CAN RESPOND BY NODDING AND CAN UNDERSTAND WHEN SPOKEN TO. IV TO THE RFA INFUSING WELL. PATENT AND INTACT. NO REDNESS OR SWELLING NOTED. ASPIRATION PRECAUTIONS IN PLACE AND MAINTAINED. COMFORT AND SAFETY MEASURES MAINTAINED. CALL LIGHT IS WITHIN REACH. WILL ENDORSE CARE TO DAY SHIFT RN.
[2019-04-04 06:23] LABS: BASOPHIL % 0.5 % (0-2); PLATELET COUNT 162 x10^3mcL (130-400); RED CELL DISTRIBUTION WIDTH 13.5 % (11.5-14.5)
[2019-04-04 06:37] LABS: CALCIUM 8.9 mg/dL (8.5-10.1); CHLORIDE SERUM 99 mmol/L (98-107); CREATININE SERUM 0.7 mg/dL (0.6-1.0); GLUCOSE SERUM 96 mg/dL (74-106); MAGNESIUM 1.7 mg/dL (1.8-2.4); PHOSPHOROUS 3.4 mg/dL (2.5-4.9); POTASSIUM SERUM 3.2 mmol/L (3.5-5.1); SODIUM SERUM 129 mmol/L (136-145)
--- NOTE | 2019-04-04 06:48 | NUR ---
K 3.2, MG 1.7, DR BROWN MADE AWARE. WILL ENDORSE CARE TO DAY SHIFT RN.
--- NOTE | 2019-04-04 07:30 | NUR ---
PT AWAKE.NON VERBAL.NO SIGNS OF PAIN/DISCOMFORT.LUNG SOUND DIM ON THE BASES.ON SR WITH DEMAND PACED ON THE MONNITOR.IVF NS GOING AT 50 ML/HR INFUSING WELL.CALL LIGHT WITHIN REACH.FREQUENT CHECKS IMPLEMENTED.HOB AT 30 DEG ANGLE FOR ASPIRATION PRECAUTION.WILL CONTINUE TO MONITOR PT.
[2019-04-04 10:08] VITALS: BP 128/64
--- NOTE | 2019-04-04 10:51 | NUR ---
SPOKE WITH [place],DONOR FLOOR TECHNICIAN OF [facility].ASKED ABOUT HOW PT IS AND WHAT OTHER WORK-UP TO BE DONE TO PT.INFORMED [place] OF NO CURRENT NEW ORDER RIGHT NOW BUT MIGHT DO EGD DEPENDING ON FAMILY'S DECISSION.
--- NOTE | 2019-04-04 13:46 | NUR ---
PHYSICAL THERAPY DAILY NOTES CO-SIGN All documentation done by the Optometric Aide for 04/04/19 has been reviewed. I agree with the documentation. Reviewed/Co-Signed by: Kathy Lubin PT Documentation Done by:HUSAM MARRUFO PTA
--- NOTE | 2019-04-04 15:35 | NUR ---
RYAN FREIRE,FACILITY ASSISTANT FOR PT'S NG=840/105(134) JM=514 ORDERED HYDRALAZINE 20 MG IVP X 1 NOW.
--- NOTE | 2019-04-04 16:00 | NUR ---
PT VOMITTED ONCE.COFFEE GROUND EMESIS. PER FOXING PAINTER PT HAD ENSURE AT LUNCH.INFORMED KATIUSKA FREIRE.WENT TO SEE PT.
--- NOTE | 2019-04-04 16:04 | NUR ---
GAVE HYDRALAZINE 20 MG IVP FOR FX=320/105
--- NOTE | 2019-04-04 16:14 | NUR ---
RECHECKED BP AFTER HYDRALAZINE VX=831/84 EQ=862
[2019-04-04 16:16] VITALS: BP 148/84
--- NOTE | 2019-04-04 18:52 | NUR ---
NO SIGNIFICANT CHANGE NOTED.WILL ENDORSE TO NEXT SHIFT.
--- NOTE | 2019-04-04 19:15 | NUR ---
REPORT RECIEVED FROM DAY SHIFT RN. PATIENT WAS SEEN AND IS RESTING COMFORTABLY IN BED WITH FAMILY AT BEDSIDE. BREATHING EVEN ON 2L NC. NO SOB OR RESP DISTRESS NOTED. NO C/O PAIN. DENIES CHEST PAIN. IV TO THE RFA INFUSING WELL. PATENT AND INTACT. EDUCATED PATIENT AND FAMILY THAT PATIENT WILL BE NPO AT MIDNIGHT FOR EGD. DAUGHTER DOES NOT WANT TO SIGN THE CONSENT AT THIS TIME BECAUSE SHE STILL HAS QUESTIONS FOR DR CHUN. COMFORT AND SAFETY MEASURES MAINTAINED. BED IS LOCKED AND IN THE LOWEST POSITION. SIDE RAILS UP X2. CALL LIGHT IS WITHIN REACH. WILL CONTINUE TO MONITOR.
[2019-04-04 21:26] VITALS: BP 140/75
[2019-04-04 21:28] VITALS: BP 140/75
--- NOTE | 2019-04-04 23:44 | NUR ---
PATIENT RESTING IN BED COMFORTABLTE. NO DISTRESS NOTED. BREATHING EVEN ON 2L NC. NO S/S OF PAIN. IV INFUSING WELL. COMFORT AND SAFETY MEASURES MAINTAINED. CALL LIGHT IS WITHIN REACH. WILL CONTINUE TO MONITOR.
--- NOTE | 2019-04-05 02:19 | NUR ---
PATIENT RESTING IN BED COMFORTABLY WITH EYES CLOSED. NO DISTRESS NOTED. NO S/S OF PAIN. BREATHING EVEN ON 2L NC. CALL LIGHT IS WITHIN REACH. SAFETY PRECAUTIONS IN PLACE. WILL CONTINUE TO MONITOR.
[2019-04-05 05:05] VITALS: BP 117/69
--- NOTE | 2019-04-05 05:59 | NUR ---
PATIENT SLEPT IN LONG INTERVALS THROUGHOUT THE NIGHT. NO ACUTE/SIGNIFICANT CHANGES NOTED. BREATHING EVEN ON 2L NC. NO SOB OR RESP DISTRESS NOTED. NO C/O PAIN. NONVERBAL BUT IS ABLE TO NOD A RESPONSE. NO INDICATIONS OF CHEST PAIN NOTED. IVF TO THE RFA INFUSING WELL. PATENT AND INTACT. NO REDNESS OR SWELLING NOTED. ASPIRATIONS PRECAUTIONS MAINTAINED. NPO AT THIS TIME DUE TO POSS PROCEDURE IN THE AM. PATIENT TOLERATED MEDS WELL CRUSHED IN APPLE SAUCE. COMFORT AND SAFETY MEASURES MAINTAINED. CALL LIGHT IS WITHIN REACH. WILL ENDORSE CARE TO DAY SHIFT RN.
[2019-04-05 06:39] LABS: BASOPHIL % 0.4 % (0-2); PLATELET COUNT 176 x10^3mcL (130-400); RED CELL DISTRIBUTION WIDTH 13.8 % (11.5-14.5)
[2019-04-05 06:43] LABS: CALCIUM 10.2 mg/dL (8.5-10.1); CARBON DIOXIDE 28.8 mmol/L (21-32); CHLORIDE SERUM 104 mmol/L (98-107); CREATININE SERUM 0.7 mg/dL (0.6-1.0); GLUCOSE SERUM 117 mg/dL (74-106); POTASSIUM SERUM 4.2 mmol/L (3.5-5.1); SODIUM SERUM 138 mmol/L (136-145)
--- NOTE | 2019-04-05 07:44 | NUR ---
REPORT RECEIVED FROM MATTHEW KUMAR. PATIENT SEEN. RESPONDED TO VOICE BUT AVERBAL. DENIES ANY PAIN TO SOB. O2 2LP VIA NASAL CANULA IN USE. UPPER SIDERAILS UP. BED LOW AND LOCKED. NPO FOR PROCEDURE.
[2019-04-05 08:18] VITALS: BP 119/71
--- NOTE | 2019-04-05 09:42 | NUR ---
DAUGHTER LUCILA HERE AND EXPRESSED CONCERN RE- POSSIBLE EGD. INFORMED DR CHUN AND AWARE. PATIENT TURNED TO LEFT SIDE AND ZGUARD APPLIED TO BUTTOCKS. BED LOW AND LOCKED. ALARM ON.
[2019-04-05] MEDS ORDERED: ATORVASTATIN CA40 M1 PO (10:32)
[2019-04-05] MEDS ORDERED: XARELTO10 M1 PO (10:33)
[2019-04-05] MEDS ORDERED: CARDIZEM30 MG PO (10:33)
[2019-04-05 12:00] VITALS: BP 124/73
--- NOTE | 2019-04-05 13:36 | NUR ---
SEEN NAPPING IN BED. EUPNEIC. NOT IN APPARENT DISTRESS. HOB UP. BED LOW AND LOCK WITH UPPER RAILS UP.
[2019-04-05 14:02] VITALS: BP 143/74
--- NOTE | 2019-04-05 14:40 | NUR ---
PHYSICAL THERAPY DAILY NOTES CO-SIGN All documentation done by the [employer] Specialist for 04/05/19 has been reviewed. I agree with the documentation. Reviewed/Co-Signed by: Kathy Lubin PT Documentation Done by:HUSAM MARRUFO PTA
--- NOTE | 2019-04-05 15:21 | NUR ---
INCONTINENT. PERICARE DONE BY FAC ENGINEER JOANNA. AWAITING DAUGHTER TO PLUNGER SCOOP OPERATOR HER MOTHER FOR DISCHARGE.
[2019-04-05 16:09] VITALS: BP 116/70
--- NOTE | 2019-04-05 16:30 | NUR ---
INCONTINENT. CLEMENTE CARE DONE BY LAVELLE RAY. PT. TURNED AND REPOSITIONED TO RIGHT SIDE. HOB UP.
--- NOTE | 2019-04-05 17:20 | NUR ---
NAPPING IN BED. NOT IN ANY DISTRESS. AWAITING DISCHARGE. UPPER RAILS UP.
--- NOTE | 2019-04-05 18:57 | NUR ---
DISCHARGE TEACHINGS RE- MEDS, DIET, ACTIVITY, MD FOLLOW UP, WHEN TO CALL PRIMARY MD OR 911. DAUGHTER STATED UNDERSTANDING. DISCHARGE PACKET GIVEN INCLUDING PRESCRIPTIONS. HEP LOCK REMOVED AND PRESSURE APPLIED FOR 8 MINUTES. ESCORTED OFF THE FLOOR BY LAVELLE SCRUGGS.
== END 2019-04-05 18:46 | disposition home or self-care (01) | DRG 74 ==
LOC: ED 16:44 → DU 20:03 → ED 20:35 → DU 20:58
PROVIDERS: Emergency Medicine; General Practice; ADMIT Internal Medicine
DX: G90.8 Other disorders of autonomic nervous system (principal); G45.9 Transient cerebral ischemic attack, unspecified; E44.1 Mild protein-calorie malnutrition; E87.1 Hypo-osmolality and hyponatremia; I69.351 Hemiplegia and hemiparesis following cerebral infarction affecting right dominant side; I48.0 Paroxysmal atrial fibrillation; E78.5 Hyperlipidemia, unspecified; K21.9 Gastro-esophageal reflux disease without esophagitis; J44.9 Chronic obstructive pulmonary disease, unspecified; Z66 Do not resuscitate; Z95.0 Presence of cardiac pacemaker; Z68.22 Body mass index [BMI] 22.0-22.9, adult
CPT/HCPCS: 83880; 92526-GN; 92610; 97110-GP; 97116-GP; 97530-GP; J0360; J1940; J3475; J3480; J3490; J7030; Q0092; Q9967

== ENCOUNTER 2019-04-20 13:24 | Inpatient (IN) | payer OTHER ==
[~2019-04-20] VITALS: Ht 152.4 cm; Wt 45.4 kg
[~2019-04-20 13:24] MED LIST changes: +ATORVASTATIN CA40 M1 PO; +CARDIZEM30 MG PO; +DIGITEK125 MCG; +NATURE'S BLEND400 I2 PO; +XARELTO10 M1 PO; +ZESTRIL40 MG
--- NOTE | 2019-04-20 13:43 | NUR ---
PT'S HR SEEN AT 39-42 BPM. MD RAMESH MADE AWARE. PT AWAKE AND MOVING BUE PURPOSEFULLY; AWAKE ALERT. PT REMAINS CONNECTED TO FULL CM.
--- NOTE | 2019-04-20 13:48 | NUR ---
PT BIBA FOR SOB X1 HR WELDER FITTER WITH NONPRODUCTIVE COUGH X3 DAYS. PER MEDIC PT HAS HX OF STROKE WITH R SIDED DEFICITS, AND REMAINS NONVERBAL D/T HX; UNDERSTANDS ONLY GERMAN AND IS ABLE TO SHAKE HEAD YES OR NO. PT HAS PACEMAKER TO L UPPER CHEST. HR IN HIGH 70'S AT THIS TIME. MSE BY DR RAMESH.
--- NOTE | 2019-04-20 14:02 | NUR ---
REMOVE O2 FROM PT AT THIS TIME PER MD.
--- NOTE | 2019-04-20 14:21 | NUR ---
FAMILY NOW AT BEDSIDE. FOR DAUGHTER PT HAS BEEN ACTING AT [facility]. LAB AT [facility] FOR BLOOD DRAW AT THIS TIME.
[2019-04-20 14:35] LABS: BASOPHIL % 0.4 % (0-2); PLATELET COUNT 165 x10^3mcL (130-400); RED CELL DISTRIBUTION WIDTH 14.4 % (11.5-14.5)
[2019-04-20 14:50] LABS: CALCIUM 9.1 mg/dL (8.5-10.1); CHLORIDE SERUM 98 mmol/L (98-107); CREATININE SERUM 0.7 mg/dL (0.6-1.0); GLUCOSE SERUM 118 mg/dL (74-106); POTASSIUM SERUM 4.1 mmol/L (3.5-5.1); SODIUM SERUM 134 mmol/L (136-145)
[2019-04-20 14:55] LABS: ALKALINE PHOSPHATASE 85 U/L (46-116); ALT/SGPT 11 U/L (14-59); AST/SGOT 12 U/L (15-37); BILIRUBIN TOTAL 1.04 mg/dL (0.20-1.00); TOTAL PROTEIN, SERUM 7.2 g/dL (6.4-8.2)
[2019-04-20 14:56] LABS: ALBUMIN 3.1 g/dL (3.4-5.0)
[2019-04-20 15:12] LABS: microscopic required? YES; urine erythrocyte NEGATIVE (NEGATIVE)
[2019-04-20 16:38] VITALS: BP 121/81
--- NOTE | 2019-04-20 16:39 | NUR ---
REPORT GIVEN TO RUBEN CASTRO TO ASSUME CARE
--- NOTE | 2019-04-20 17:10 | NUR ---
RECEIVED PT FROM ED VIA [email or web address], CAME IN DUE TO SOB AND COUGH. PT IS ALERT AND AWAKE, NON-VERBAL, W/ LEFT FACIAL DROOP, RIGHT ARM WEAKNESS. ABLE TO FOLLOW SIMPLE COMMANDS. NO SOB NOTED, CRACKLES NOTED ON AUSCULTATION, O2 SAT=99% ON 2LPM/NC. DENIES CHEST PAIN/PRESSURE, SR W/ PVC'S, PAC'S, DEPRESSED T WAVE, AND BBB. PACED ON DEMAND, W/ LEFT CHEST PACEMAKER. DENIES ABDOMINAL DISCOMFORT. VOIDS. W/ BLANCHABLE ERYTHEMA ON THE SACRAL-COCCYGEAL, OPTIFOAM IN PLACE. W/ ECCHYMOSIS ON BUE AND ERYTHEMA ON LEFT BREASTFOLD, BEHAVIORAL HEALTH PROFESSIONAL. IV SITE PATENT AND INTACT. SIDE RAILS UPX2. CALL LIGHT ON REACH. FAMILY AT BEDSIDE. PRIMARY NURSE SUPIN AT BEDSIDE FOR CONTINUITY OF CARE
[2019-04-20 17:19] VITALS: BP 144/42
[2019-04-20 17:26] LABS: MAGNESIUM 1.9 mg/dL (1.8-2.4); PHOSPHOROUS 2.8 mg/dL (2.5-4.9)
[2019-04-20 17:35] VITALS: BP 117/45
[2019-04-20 17:46] VITALS: Ht 152.4 cm; Wt 45.4 kg
--- NOTE | 2019-04-20 17:54 | NUR ---
BREATHING E/U ON O2 2LPM N/C. DENIES PAIN. PATIENT'S GRANDAUGHTER AT BEDSIDE. IVF NS TO LT WRIST INFUSING AT 80ML/HR. CALL LIGHT INSTRUCTED AND PLACED WITHIN EASY REACH. SIDERAILS UP X2. PATIENT AND FAMILY MADE AWARE OF NPO STATUS.
--- NOTE | 2019-04-20 19:18 | NUR ---
REPEATED LACTIC ACID LEVEL =2.1(FROM 2.2), ON IVF NS AT 80ML/HR, ENDORSED TO NOC.
--- NOTE | 2019-04-20 20:00 | NUR ---
RECEIVED PT IN BED. RESTING QUIETLY.NON VERBAL. WITH LT FACIAL DROOP. RESP. EVEN AND UNLABORED. 02 AT 2L/MIN VIA NC, LUNG SOUNDS WITH CRACKLES. NO ACUTE DISTRESS NOTED. AFEBRILE AND VITAL SIGNS STABLE. SR WITH OCCA PACS, BBB AND DEPRESSED T.WAVE.OTHERWISE PACED ON DEMAND ON THE MONITOR, NO EVIDENCE OF ANY DISCOMFORT. IVF, NS AT 80ML/HR, INTACT AND INFUSING VIA RH , SITE CLEAR.HS CARE DONE. WILL CONTINUE TO MONITOR.
[2019-04-20 20:49] VITALS: BP 118/39
--- NOTE | 2019-04-21 01:35 | NUR ---
RESTING QUIETLY WITH EYES CLOSED, APPEARS ASLEEP, EASILY AROUSABLE. RESP. EVEN AND UNLABORED. NO ACUTE DISTRESS NOTED. TURNED AND REPOSITIONED FOR COMFORT. IVF INTACT AND INFUSING WELL, SITE CLEAR.WILL CONTINUE TO MONITOR.
[2019-04-21 05:29] VITALS: BP 130/41
--- NOTE | 2019-04-21 06:29 | NUR ---
TURNED AND REPOSITIONED Q2HRS AND PRN. AFEBRILE AND VITAL SIGNS STABLE. DUE MEDS GIVEN ORDERED, ABDIRIZAK. WELL. RESP. EVEN AND UNLABORED. NO ACUTE DISTRESS NOTED. KEPT COMFORTABLE. NO SIGNIFICANT CHANGE NOTED IN PT,S CONDITION. NPO MAINTAINED ORDERED. WILL ENDORSE TO INCOMING NURSE.
[2019-04-21 06:50] LABS: CALCIUM 8.3 mg/dL (8.5-10.1); CARBON DIOXIDE 29.8 mmol/L (21-32); CHLORIDE SERUM 104 mmol/L (98-107); CREATININE SERUM 0.6 mg/dL (0.6-1.0); GLUCOSE SERUM 95 mg/dL (74-106); MAGNESIUM 1.7 mg/dL (1.8-2.4); PHOSPHOROUS 3.2 mg/dL (2.5-4.9); SODIUM SERUM 139 mmol/L (136-145)
--- NOTE | 2019-04-21 07:15 | NUR ---
RECEIVED PT FROM TRIM TECHNICIAN. PT AWAKE, ALERT, NON-VERBAL. PT ON TELE #11, NO CHEST PAIN NOTED. PT ON 2LNC WITH NO RESP DISTRESS NOTED AT THIS TIME. IV ACCESS RIGHT HAND INFUSING NS AT 80ML/HR. ACTIVE BOWEL SOUNDS NOTED. PERIPHERAL PULSES PALPABLE, NO EDEMA NOTED. PT NOTED TO HAVE GENERALIZED WEAKNESS, SAFETY MEASURES IN PLACE, BED LOW AND LOCKED. CALL LIGHT WITHIN REACH.
[2019-04-21 07:20] LABS: BASOPHIL % 0.3 % (0-2); PLATELET COUNT 159 x10^3mcL (130-400); RED CELL DISTRIBUTION WIDTH 14.1 % (11.5-14.5)
[2019-04-21 09:11] VITALS: BP 130/94
--- NOTE | 2019-04-21 09:27 | NUR ---
PT RESTING AT THIS TIME IN NO ACUTE DISTRESS. 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 VSS AT THIS TIME. WILL CONTINUE TO MONITOR.
--- NOTE | 2019-04-21 11:48 | NUR ---
PT RESTING COMFORTABLY IN BED AT THIS TIME. DUE ABX ADMINISTERED ORDERED (SEE EMAR). NO ACUTE DISTRESS NOTED. SAFETY MEASURES MAINTAINED.
--- NOTE | 2019-04-21 12:10 | NUR ---
PT MAG 1.7, DR. RHODES AWARE. NO ACUTE DISTRESS OR DISCOMFORT NOTED AT THIS TIME. FAMILY AT BEDSIDE.
[2019-04-21 12:42] VITALS: BP 121/50
--- NOTE | 2019-04-21 12:46 | NUR ---
MAGNESIUM SULFATE 2G IVPB ADMINISTERED ORDERED (SEE EMAR). FAMILY AT BEDSIDE. NO ACUTE DISTRESS OR DISCOMFORT NOTED AT THIS TIME.
--- NOTE | 2019-04-21 14:09 | NUR ---
PT RESTING IN BED RECEIVING BREATHING TREATMENT AT THIS TIME. NO ACUTE DISTRESS OR DISCOMFORT NOTED. AWAITING SWALLOW EVALUATION.
[2019-04-21 17:23] VITALS: BP 132/49
--- NOTE | 2019-04-21 17:54 | NUR ---
PT RESTING WITH NO ACUTE DISTRESS OR DISCOMFORT NOTED. DUE ANTIBIOTIC ADMINISTERED ORDERED. AWAITING SWALLOW EVAL, DR RHODES AWARE PT HAS NOT BEEN SEEN. NO NEW ORDER AT THIS TIME. WILL CONTINUE TO MONITOR.
--- NOTE | 2019-04-21 18:49 | NUR ---
PT STABLE AT THIS TIME. ALL NEEDS MET THROUGHOUT SHIFT. NO ACUTE DISTRESS OR DISCOMFORT NOTED. WILL CONTINUE TO MONITOR AND ENDORSE CARE TO ANTIQUE CLOCKS REPAIRER.
--- NOTE | 2019-04-21 19:42 | NUR ---
AWAKE AND VERBALLY RESPONSIVE. ABLE TO MAKE NEEDS KNOWN. SKIN WARM AND DRY TO TOUCH. RESPIRATION EVEN AND UNLABORED. LUNGS WIH CRACKLES BILATERALLY. IV SITE AT THE RIGHT HAND INTACT AND PATENTWITH IVF NS AT 80ML/HR TOLERATING WELL. ON TELE 11 WITH SR WITH BBB. DENEIS ANY CHEST PAIN/DISCOMFORT.
[2019-04-21 21:44] VITALS: BP 144/46
--- NOTE | 2019-04-22 | NUR ---
RESTING QUIETLY IN BED , APPARENTLY ASLEEP. EYES CLOSED, NO FACIAL GRIMACING NOTED. RESPIRATION EVEN AND UNLABORED.
--- NOTE | 2019-04-22 02:00 | NUR ---
TURNED AND REPOSITIONED Q 2HRS FOR COMFORT. REMAINS NOP EXCEPT MEDICATIONS PENDING SWALLOW EVAL.
[2019-04-22 05:34] VITALS: BP 148/68
--- NOTE | 2019-04-22 06:01 | NUR ---
INCONTINENT OF URINE. GOOD PERICARE RENDERED. KEPT CLEAN AND DRY. CONTINUES ON ATB IVPB ORDERED. NO ADVERSE REACTION NOTED FROM ATB THERAPY.
[2019-04-22 06:53] LABS: BASOPHIL % 0.1 % (0-2); PLATELET COUNT 157 x10^3mcL (130-400); RED CELL DISTRIBUTION WIDTH 14.4 % (11.5-14.5)
[2019-04-22 07:05] LABS: CALCIUM 7.8 mg/dL (8.5-10.1); CARBON DIOXIDE 28.2 mmol/L (21-32); CHLORIDE SERUM 103 mmol/L (98-107); CREATININE SERUM 0.7 mg/dL (0.6-1.0); GLUCOSE SERUM 100 mg/dL (74-106); MAGNESIUM 2.2 mg/dL (1.8-2.4); PHOSPHOROUS 2.8 mg/dL (2.5-4.9); SODIUM SERUM 138 mmol/L (136-145)
--- NOTE | 2019-04-22 07:43 | NUR ---
Received patient from Night Nurse. Patient was admited for Resp Failure with PNA . Patient is on bed, resting, and no dyspnea with 3 L NC, Normal Sinus Rhythm on the monitor. Care will be continue for the day shift.
[2019-04-22 09:30] VITALS: BP 144/80
[2019-04-22 12:32] VITALS: BP 156/72
--- NOTE | 2019-04-22 15:25 | NUR ---
PT WAS SEEN FOR DYSPHAGIA. PT HAD S/S OF SILENT ASPIRATION FOR PUREE DIET. RECOMMENDATION BARRIUM SWALLOW STUDY
[2019-04-22 17:00] VITALS: BP 152/69
--- NOTE | 2019-04-22 19:30 | NUR ---
PT IS NON VERBAL WITH L FACIAL DROOP. CAN NOD TO QUESTIONS, UNDERSTANDS GEORGIAN. ON TELE #11, NSR WITH A BBB. PACEMAKER ON L CHEST WALL. PULSES ARE PRESENT. NO EDEMA NOTED. LUNGS CLEAR ON ALL FELDS. ON 3L NC, DENIES ANY SOB. EQUAL CHEST RISE AND FALL. NO SIGN OF RESP DISTRESS. BOWEL SOUNDS PRESENT x4. PT IS NPO. R SIDED WEAKNESS. CONTRACTURES NOTED ON R HAND, UNABLE TO OPEN HANDS. SKIN WARM AND INTACT. DAUGHTER AT BEDSIDE. BED IS AT LOWEST SETTING. CALL LIGHT WITHIN REACH. WILL CONTINUE TO MONTIOR.
[2019-04-22 20:37] VITALS: BP 128/71
--- NOTE | 2019-04-22 21:01 | NUR ---
SPOKE WITH PT DAUGHTER AND PT ABOUT NGT INSERTION. PT SHOOK HEAD NO AND DAUGHTER QUESTIONED ABOUT A REPEAT SWOLLOW EVALUATION. SPOKE WITH MD TAYLOR AND VOICED PT DAUGHTER CONCERNS AND THAT PT SHOOK HER HEAD NO. MD TO ORDER REPEAT SWOLLOW EVAL AND D/C INSERTION OF NGT. COMMUNICATED WITH DAUGHTER AND PT AND AGREED.
[2019-04-23] VITALS (8 sets, daily range): BP systolic 108–148; BP diastolic 54–82
--- NOTE | 2019-04-23 00:27 | NUR ---
PT RESTING IN BED WITH BOTH EYES CLOSED. BREATHING EVEN AND UNLABORED. NO SIGN OF DISTRESS NOTED. BED IS AT LOWEST SETTING. CALL LIGHT WITHIN REACH. WILL CONTINUE TO MONTIOR.
--- NOTE | 2019-04-23 06:50 | NUR ---
PT IS RESTING IN BED. DENIES ANY PAIN OR DISTRESS. IV INTACT AND IN PLACE. NO ACUTE EVENT OCCURED AT THIS TIME. BED IS AT LOWEST SETTING. CALL LIGHT WITHIN REACH. WILL ENDORSE TO AM NURSE.
--- NOTE | 2019-04-23 08:25 | NUR ---
AT 0735 - RECEIVED PATIENT FROM NIGHT NURSE. AWAKE, ALERT. NON-VERBAL BUT APPEARS ABLE TO GESTURE. MONITOR SHOWING SINUS RHYTHM, BBB WITH PAC'S. RATE 80'S. IV INFUSING NS AT 80 ML/HR. NPO.
[2019-04-23 08:41] LABS: BASOPHIL % 0.2 % (0-2); PLATELET COUNT 180 x10^3mcL (130-400); RED CELL DISTRIBUTION WIDTH 14.3 % (11.5-14.5)
[2019-04-23 08:51] LABS: CALCIUM 8.3 mg/dL (8.5-10.1); CARBON DIOXIDE 27.4 mmol/L (21-32); CHLORIDE SERUM 102 mmol/L (98-107); CREATININE SERUM 0.6 mg/dL (0.6-1.0); GLUCOSE SERUM 110 mg/dL (74-106); MAGNESIUM 1.9 mg/dL (1.8-2.4); PHOSPHOROUS 2.8 mg/dL (2.5-4.9); POTASSIUM SERUM 3.8 mmol/L (3.5-5.1); SODIUM SERUM 137 mmol/L (136-145)
--- NOTE | 2019-04-23 11:25 | NUR ---
AT 1030 - PATIENT SEEN BY DR HUTCHISON. DR SPOKE WITH PATIENT'S FAMILY REGARDING NUTRITION UNTIL PATIENT IS ABLE TO HAVE VIDEO SWALLOW. FAMILY AGREEABLE TO HAVING NG TUBE INSERTED AND FEEDING VIA NG FOR THE INTERUM. AT 1040 - DR KULKARNI MADE AWARE. HE WILL PLACE ORDER FOR NG TUBE. AT 1107 - MONITOR SHOWING TACHYCARDIA; RATE 157. BP 108/[address] KULKARNI AT 1110 - PATIENT SEEN AND EXAMINED BY DR KULKARNI. AT 1125 - RECEIVED ORDERS FOR STAT EKG AND DOSE OF IV CARDIZAM.
--- NOTE | 2019-04-23 12:15 | NUR ---
AT 1207 - GIVEN CARDIZAM 10 MG IVP FOR SUSTAINED TACHYCARDIA OF 157. EKG WAS DONE. AT 1215 - BP 99/73. MONITOR STIL SHOWING TACHYCARDIA - INITIAL HR POST CARDIZAM 140'S, NOW BACK TO 160. CONTINUING TO MONITOR.
--- NOTE | 2019-04-23 12:42 | NUR ---
Initial Nutrition Assessment- Dx: cough and SOB x 2 days PMHx: CVA (10 years go), recent TIA, a-fib s/p pacemaker placement 10 years ago, HTN, GERD, HLD, COPD PSHx: pacemaker placement 10 years ago Labs: Meds: Diet: NPO PO Intakes: NPO Ht: 60 inches/5'0" Wt: 45.359 kg/100 pounds BMI: 19.5 kg/m2, underweight for age (> 65 y/o) IBW: 100 pounds/45 kg %IBW: 100% UBW: Unknown Age: 88 Food Allergies: NKFA Skin: Jose Angel 18 Edema: none noted GI: Last BM 04/20/19, formed, denies abd discomfort, bowel sounds active. Pt has been admitted with dx: acute on chronic respiratory failure 2/2 possible gram negative pneumonia, moderate malnutrition likely 2/2 decreased PO intakes, hx CVA, hx a-fib s/p pacemaker placement, hx HTN uncontrolled, hx GERD, hx HLD, hx COPD. Pt noted with chief c/o cough and shortness of breath x 2 days. Her past medical history includes CVA (10 years go), recent TIA, a-fib s/p pacemaker placement 10 years ago, HTN, GERD, HLD, COPD and a past surgical history of pacemaker placement 10 years ago. SHERLY received phone call from Dr. Fabio Zuñiga around 11:50am on 04/23/19. states that Pt has not had nutrition initiated and that Pt has been cleared for use of NG-tube by GI. would like tube feeding recommendations for Pt at this time. Consult for TF received 04/23/19, around 11:55am. RDN visited with Pt, Pt's daughter and granddaughter at bedside, along with RN. Daughter and granddaughter reports that Pt has been on pureed diet for some time now. Per RN, Pt will have tube inserted today, video swallow study to be done tomorrow. CYNTHIAN discussed TF recommendations with RN, RN acknowledges. CYNTHIAN discussed recommendations with MD Gutierrez MD acknowledges. Consult - TF Problem with: N: no V: no D: no C: no Problems with: Chewing: yes Swallowing: yes Current appetite: Per daughter, Pt generally has a good appetite Recent wt changes: minor loss of 1-2# x 6 months Vitamin/Supplement: none Special Diet at Home: pureed, eats everything - likes chicken; drinks thickened water Physical activity: none Nutrition education given (specify specific nutrition education and handout given): N/A Food-drug interactions? N/A Education given? N/A Estimated Nutritional Needs Based on actual body weight of 45 kg. Energy: 1571-1740 kcal/d (30-35 kcal/kg - older adult maintenance) Protein: 45-54 gm/kg (1-1.2 gm/kg - older adult maintenance) Fluid: 7692-9925 kcal/d (30-35 kcal/kg) or per MD Nutrition Diagnosis 1. Inadequate protein/energy intakes related to failed swallowed eval as evidenced by Pt meeting < 80% estimated needs. 2. Underweight related to advanced age as evidenced by Pt with BMI of < 23 kg/m2 (> 65 y/o); Pt with BMI of 19.5 kg/m2. Intervention/RDN Recommendation(s): 1. If/when medically appropriate, consider TF Jevity 1.2 to start at 10 mL/hr, advancing by 10 mL Q4H as tolerated. Continue to increase until goal of 40 mL/hr is reached. This will provide 960 mL total volume, 1152 kcal, 53 gm protein to meet 85% est kcal and 98% est protein needs. Monitor/Evaluate Goal: Intake via nutrition support to meet at least 80% of estimated needs with acceptable tolerance within 2-3 days. Monitor: nutrition support tolerance, Labs, GI function, Skin integrity, Weights. F/U in 2-3 days as high risk (04/25-)
--- NOTE | 2019-04-23 12:59 | NUR ---
MONITOR SHOWING TACHYCARDIA. HR REMAINS AT 156. BP 109/79. PATIENT SLEEPING.
--- NOTE | 2019-04-23 13:41 | NUR ---
MONITOR NOW SHOWING SINUS RHYTHM; RATE 90.
--- NOTE | 2019-04-23 14:21 | NUR ---
16 FG NG TUBE INSERTED THROUGH R NARES TO SECOND MARKING. KUB ORDERED FOR PLACEMENT VERIFICATION.
--- NOTE | 2019-04-23 15:46 | NUR ---
PATIENT REMAINS IN SINUS RHYTHM WITH BBB; RATE 90'S. KUB HAS BEEN COMPLETED. AWAITING RESULTS. PATIENT RESTING QUIETLY. NO DISTRESS.
--- NOTE | 2019-04-23 17:34 | NUR ---
GIVEN DIGOXIN 0.125 MG PER ORDER AND EMAR. STIL WAITING FOR KUB RESULT. DAUGHTER NOW AT BEDSIDE. UPDATED ON PLAN.
--- NOTE | 2019-04-23 18:49 | NUR ---
RESTING QUIETLY. AWAKE, ALERT. MONITOR SHOWING SINUS ARRHYTHMIA/PACS. RATE 81. IV INFUSING NS AT 80 ML/HR. WAITING FOR KUB RESULT FOR NG TUBE PLACEMENT. RESPIRATIONS REGULAR. O2 SAT 95% ON 2L NC. WILL ENDORSE CARE TO NIGHT NURSE.
--- NOTE | 2019-04-23 19:45 | NUR ---
RECEIVED WITH HOB ELEVATED AT 45DEGREES. NGT INTACT FOR TUBE FEEDING AWAITNG FOR KUB/CXR RESULT FOR VERIFICATION OF NG PALCEMENT. FAMILY AT BEDSIDE VERY SUPPORTIVE OF PATIENT'S CURRENT PALN OF CARE. SKIN WARM AND DRY TO TOUCH WITH BREASFOLDS BLANCHABLE REDNESS. NAUN, DENEIS ANY DISCOFMORT AT THIS TIME. O2 AR 3L/NC WITH O2 SAURATION AT 96%. STILL WITH SOB ON SLIGTH EXERTION. WILL CONTINUE TO MONITOR.
--- NOTE | 2019-04-23 21:30 | NUR ---
KUB/XR RESULT SHOWS NGT AT THE TIP BELOW DIAPHRAGM, DR TAYLOR, MADE AWARE OF KUB RESULT RE NGT VERIFICATIONS, MD ORDERED TO START NGT FEEDING OF JEVITY 1.2 TO START AT 10ML/HR, ADVANCE 10ML Q4HRS TOLERATED WITH GOAL OF 40ML/HR, FAMILY MACE AWARE . STARTED ON NGT FEEDING OF JEVITY 1.2 AT 10ML./HR, WILL MONITOR PTS TOLERANCE OF NGT FEEDING.
--- NOTE | 2019-04-24 00:30 | NUR ---
NO GASTRIC RESIDUAL NOTED. NGT FEEDING INCREASED TO 20ML/HR ORDERED. WILL CONTINUE TO MONITOR.
--- NOTE | 2019-04-24 01:30 | NUR ---
NOG ASTRIC RESIULA NOTED. NGT FEEDING INCREASED TO 20ML/HR ORDERED. HOB ELEVATED AT 45 DEGREES.
--- NOTE | 2019-04-24 04:24 | NUR ---
CONTINUES ON REPOSITIONING Q 2HRS FOR COMFORT. INCONTINENT OF URINE. GOOD PERICARE RENDERED. KEP CLEAN AND DRY.
[2019-04-24 05:12] VITALS: BP 143/48
[2019-04-24 06:22] LABS: BASOPHIL % 0.2 % (0-2); PLATELET COUNT 179 x10^3mcL (130-400); RED CELL DISTRIBUTION WIDTH 14.2 % (11.5-14.5)
--- NOTE | 2019-04-24 06:41 | NUR ---
NGT FEEDING INCREASED AT 30ML/HR AT 0530AM., TOLERATING WELL. NO GASTRIC RESIDUAL NOTED. KEPT CLEAN AND DRY. ALL NEEDS ATTENDED.
[2019-04-24 06:45] LABS: CALCIUM 8.2 mg/dL (8.5-10.1); CARBON DIOXIDE 24.8 mmol/L (21-32); CHLORIDE SERUM 105 mmol/L (98-107); CREATININE SERUM 0.7 mg/dL (0.6-1.0); GLUCOSE SERUM 94 mg/dL (74-106); MAGNESIUM 1.8 mg/dL (1.8-2.4); POTASSIUM SERUM 3.8 mmol/L (3.5-5.1); SODIUM SERUM 139 mmol/L (136-145)
--- NOTE | 2019-04-24 07:20 | NUR ---
RECEIVED PT FROM FARZANA RN. PT FOUND RESTING IN BED WITH BOTH EYES CLOSED. NO S/S OF ACUTE DISTRESS. NO SOB ON 3LNC. CALM/COOPERATIVE. EASILY AROUSABLE TO VERBAL STIMULI. FACIAL DROOP NOTED TO RIGHT SIDE. RIGHT SIDE WEAKNESS NOTED WITH CONTRACTURE AND LIMITED ROM TO RUE. AA/OX1 (SELF), REORIENTED TO TIME/PLACE/EVENT. FOLLOWS COMPLEX COMMANDS, ABLE TO SQUEEZE WITH LEFT HAND. PT ABLE TO GUESSTURE BY SHAKING HEAD SIDE TO SIDE/UP AND DOWN. SPEAKS CROATIAN, SPEECH QUIET. NGT TO RIGHT NARE. PATENT. TUBE FEEDING JEVITY RUNNING AT 30ML. NO RESIDUAL NOTED AT THIS TIME. NO N/V. IV WNL TO LAC, PATENT AND FLUSHES WELL. NO REDNESS, NO SWELLING, NO INFILTRATION. PACEMAKER NOTED TO LEFT CHEST. DENIES CHEST PAIN. FALL PRECAUTIONS IN PLACE. BED IN LOW POSITION. CALL LIGHT WITHIN REACH. WILL CONTINUE TO MONITOR. HOB ELEVATED
[2019-04-24 09:18] VITALS: BP 139/46
--- NOTE | 2019-04-24 10:00 | NUR ---
NGT REMOVED PER PHYSICIAN ORDER. PT TOLERATED REMOVAL WELL. NO S/S OF ACUTE DISTRESS. NO SOB NOTED ON 3LNC. RIGHT NARE PATENT. PT CALM/COOPERATIVE. AIR MATTRESS IN PLACE. FALL PRECAUTIONS IN PLACE. IV WNL TO LAC, PATENT. BED IN LOW POSITION. CALL LIGHT WITHIN REACH. PT LAYING TO RIGHT SIDE. WILL CONTINUE TO MONITOR.
--- NOTE | 2019-04-24 11:07 | NUR ---
PT BACK FROM SWALLOW EXAM, STRICT NPO IN PLACE. NO S/S OF ACUTE DISTRESS. PT CALM/COOPERATIVE. DAUGHTER AT BEDSIDE. BED IN LOW POSITION. CALL LIGHT WITHIN REACH. AIR MATTRESS IN PLACE. SCDS IN PLACE. WILL CONTINUE TO MONITOR.
--- NOTE | 2019-04-24 11:11 | NUR ---
PT WAS SEEN FOR BARRIUM SWALLOW STUDY. STUDY SHOWED ASPIRATION FOR ALL THE CONSISTENCY. RECOMMENDATION CONTINUE WITH ALTERNATE MODE OF FEEDING.
--- NOTE | 2019-04-24 11:15 | NUR ---
PACEMAKER INTERROGATED, SEE CHART FOR RESULTS.
--- NOTE | 2019-04-24 12:05 | NUR ---
NGT INSERTED PER DR. RHODES ORDER, STAT KUB XR ORDERED. NO S/S OF ACUTE DISTRESS. NO SOB ON 3LNC. TOLERATED PROCEDURE WELL. CALM/COOPERATIVE. WILL CONTINUE TO MONITOR CLOSELY.
[2019-04-24 12:20] VITALS: BP 148/46
--- NOTE | 2019-04-24 13:00 | NUR ---
NGT PLACEMENT VERIFIED, NGT FEEDING RESTARTED AT 10ML/HR. NO S/S OF ACUTE RESPIRATORY DISTRESS. NO SOB ON 3LNC. CALM/COOPERATIVE. HOB ELEVATED. WILL CONTINUE TO MONITOR.
[2019-04-24 17:51] VITALS: BP 137/65
--- NOTE | 2019-04-24 18:21 | NUR ---
PT LAYING IN BED. AA/OX1, USES GESTURES TO MAKE NEEDS KNOWN. NO S/S OF ACUTE DISTRESS. NO S/S OF ACUTE RESPIRATORY DISTRESS ON 3LNC. TUBE FEEDING RUNNING, 0 RESIDUAL OUTPUT, ADVANCED AT 1700 TO 20ML. TOLERATING FEEDING WELL. NO N/V. IV WNL TO LH, IV FLUIDS FLOWING. PT CALM/COOPERATIVE. NO S/S OF CHEST PAIN. AIR MATTRESS IN PLACE. PT LAYING TO LEFT SIDE. BED IN LOW POSITION. CALL LIGHT WITHIN REACH. FALL PRECAUTIONS IN PLACE. WILL ENDORSE TO ONCOMING SHIFT.
--- NOTE | 2019-04-24 19:44 | NUR ---
AWAKE AND ALERT, NON VERBAL. GESTURES FOR YES OR NO ANSWER TO QUESTIONS. HOB ELEVATED 30 DEG. NG TUBE TO RIGHT NARE. JEVITY TUBE FEEDING AT 20ML/HR. GASTRIC RESIDUAL CHECKED, 0ML. WITH ORDERS TO INCREASE BY 10ML/HR Q 4 HRS, NEXT DUE AT 2100H. BREATHING EVEN AND UNLABORED ON ROOM AIR, LUNG SOUNDS DIMINISHED. SINUS RHYTHM WITH PACS, W/ BBB. NOTED PACEMAKER TO LEFT CHEST WALL. NO PACING NOTED AT THIS TIME. ON AIR MATTRESS.
[2019-04-24 20:55] VITALS: BP 130/60
--- NOTE | 2019-04-24 21:07 | NUR ---
GASTRIC RESIDUAL CHECKED O ML. INCREASED JEVITY NG TUBE FEEDING TO 30ML/HR. WATER FLUSH AT 50ML Q 4 HRS MAINTAINED. HOB KEPT ELEVATED 30 DEG. DAUGHTER AT BEDSIDE. PT AWAKE AND ALERT. BREATHING EVEN AND UNLABORED ON ROOM AIR.
--- NOTE | 2019-04-24 22:35 | NUR ---
EYES CLOSED, BREATHING EVEN AND UNLABORED ON ROOM AIR. IVF INFUSING WELL. HOB KEPT ELEVATED 30 DEG. CALL LIGHT WITHIN EASY REACH.
--- NOTE | 2019-04-24 22:47 | NUR ---
PADS WET. HYGIENE NEEDS ATTENDED TO WITH ASSISTANCE FROM LAVELLE GAVIRIA. HYDRAGUARD APPLIED TO BUTTOCKS. TURNED AND REPOSITIONED. HOB KEPT ELEVATED 30 DEG. SLIGHT COUGHING NOTED. SUCTIONED SCANT AMOUNT OF WHITE FLUID FROM MOUTH. BREATHING UNLABORED.
--- NOTE | 2019-04-25 02:03 | NUR ---
gastric residual 0ml. increased ng tube feed rate to 40ml/hr.
--- NOTE | 2019-04-25 04:00 | NUR ---
EYES CLOSED, BREATHING EVEN AND UNLABORED ON 2LPM OF O2 VIA NC. CALL LIGHT WITHIN EASY REACH. HOB KEPT ELEVATED 30 DEG.
[2019-04-25 05:56] VITALS: BP 165/73
[2019-04-25 06:20] LABS: BASOPHIL % 0.3 % (0-2); PLATELET COUNT 193 x10^3mcL (130-400); RED CELL DISTRIBUTION WIDTH 14.1 % (11.5-14.5)
--- NOTE | 2019-04-25 06:20 | NUR ---
BP 170/87, VT 85. INFORMED DR. BECERRA. SHE ORDERED TO ADMINISTER DUE LISINOPRIL AT 0900H NOW.
--- NOTE | 2019-04-25 06:25 | NUR ---
GASTRIC RESIDUAL 0 ML. LISINOPRIL 40MG ADMINISTERED VIA NG TUBE. HOB KEPT ELEVATED. TUBE FEEDING INFUSING WELL. NEW IVF INSERTED TO RIGHT FOREARM BYNURSE BEASLEY. REMOVED OLD IV TO LEFT HAND. IVF INFUSING WELL.
[2019-04-25 06:52] LABS: CALCIUM 8.2 mg/dL (8.5-10.1); CARBON DIOXIDE 30.2 mmol/L (21-32); CHLORIDE SERUM 104 mmol/L (98-107); CREATININE SERUM 0.6 mg/dL (0.6-1.0); GLUCOSE SERUM 120 mg/dL (74-106); MAGNESIUM 1.7 mg/dL (1.8-2.4); PHOSPHOROUS 2.2 mg/dL (2.5-4.9); POTASSIUM SERUM 3.8 mmol/L (3.5-5.1); SODIUM SERUM 140 mmol/L (136-145)
--- NOTE | 2019-04-25 07:15 | NUR ---
PT RESTING IN BED, AOX1, RESP E/U ON NC AT 3 LPM. NO ACUTE DISTRESS NOTED. ON TELE 11 SHOWING SR W/ PACS/BBB, HR: 82. NGT IN PLACE, RECEIVING FEEDING AT 40 ML/HR, INFUSING WELL. IV TO RFA W/ NO SIGNS OF INFILTRATION, IVF INFUSING WELL. BED IN LOWEST POSITION AND CALL LIGHT WITHIN REACH. WILL CONTINUE TO MONITOR.
--- NOTE | 2019-04-25 07:21 | NUR ---
EYES CLOSED, EASILY AWAKENED. BREATHING UNLABORED ON 2LPM OF O2 VIA NC. HOB KEPT ELEVATED 30 DEG. CALL LIGHT WITHIN EASY REACH. IVF INFUSING WELL TO RIGHT FOREARM, IV SITE FREE FROM ERYTHEMA OR SWELLING. NG TUBE FEEDING AT 40ML/HR.
[2019-04-25 08:21] VITALS: BP 167/83
[2019-04-25 11:49] VITALS: BP 154/70
--- NOTE | 2019-04-25 12:37 | NUR ---
1. Recommend continuing Jevity @ 40 ml/hr. FWF 90ml Q4H.
--- NOTE | 2019-04-25 12:37 | NUR ---
Follow-up Nutrition Assessment: 243T/B CHICO GARCIA HR FU Dx: Cough and SOB X 2 days PMHx: CVA (10 years ago), recent TIA, a-fib s/p pacemaker placement 10 years ago, HTN, GERD, HLD, COPD Labs: (04/25) BG 120H, BUN 6.0L, CA 8.2L, PHOS 2.2L Meds: Lanoxin, Tenormin, Zofran, zosyn Diet: TF (NG) Jevity 1.2 @ 10ml/hr, goal 40 ml/hr, advance 10 ml Q4H, FWF 50ml Q4H PO Intake: 310 ml Weights: (04/20) 45 kg Skin: intact Jose Angel: 16 I/Os: (04/24) 2210/0 ml Edema: none GI: Last BM: 04/20 RDN Visit (04/25): Jevity 1.2 was running @ 40ml/hr. Per RN Pardeep, pt is tolerating TF well without any residuals. Pt had family member at beside and did not have any tube feeding related question at this time. Estimated Nutritional Needs based on actual body weight of 45 kg Energy: 7776-9143 kcal/day (30-35 kcal/kg)- geriatric maintenance Protein: 45-54 g/d (1-1.2 g/kg) Fluid: 9463-2798 ml/ day (1ml/kcal) or per MD Nutrition Diagnosis 1. Inadequate protein energy intake related to failed swallow eval as evidenced by Pt meeting <80% estimated needs. (improving) 2. Underweight related to advanced age as evidenced by BMI of 19.5 kg/m2 (Geriatric underweight is <23 kg/m2) (ongoing) Intervention 1. Recommend continuing Jevity @ 40 ml/hr. FWF 90ml Q4H. Monitor/Evaluate Goal: Have pt meet at least 75% of estimated needs Monitor: PO intake, Labs, GI function F/U in 2-3 days as high risk 04/27-
--- NOTE | 2019-04-25 13:20 | NUR ---
NGT ASSESSED, TUBING IN PLACE UPON AUSCULTATION, NO GASTRIC RESIDUAL NOTED. JEVITY 1.2 FEEDING STARTED AT 10ML/HR, INFUSING WELL. HOB ELEVATED 30 DEGREES, BED IN LOWEST POSITION AND CALL LIGHT WITHIN REACH. WILL CONTINUE TO MONITOR.
[2019-04-25 16:34] VITALS: BP 141/72
--- NOTE | 2019-04-25 17:30 | NUR ---
PT SLEEPING IN BED, AROUSABLE, RESP E/U ON NC AT 3 LPM. NO ACUTE DISTRESS NOTED. NGT W/ NO GASTRIC RESIDUAL, TUBE FEEDING ADVANCED TO 20 ML/HR, INFUSING WELL. IV TO RFA W/ NO SIGNS OF INFILTRATION, IVF INFUSING WELL. BED IN LOWEST POSITION AND CALL LIGHT WITHIN REACH. WILL ENDORSE TO ONCOMING NURSE.
--- NOTE | 2019-04-25 19:29 | NUR ---
EYES CLOSED, EASILY AWAKENED. DROWSY. NON VERBAL, GESTURES AND NODS TO ANSWER YES OR NO. HX OF CVA WITH RIGHT FACIAL DROOP. RIGHT HAND CONTRACTURE. BREATHING EVEN AND UNLABORED ON 2LPM OF O2 VIA NC. LUNG SOUNDS DIMINISHED TO BASES. SINUS RHYTHM W./ PACS AND BBB. NO PACING NOTED. PACEMAKER NOTED TO LEFT CHEST WALL. LIPS DRY, APPLIED MOISTURIZING GEL. HOB ELEVATED 30 DEG. GASTRIC RESIDUAL 0 ML. ON JEVITY VIA NG TUBE TO RIGHT NARE AT 20ML/HR. INCREASED TO 30ML/HR. IV SITE TO RIGHT FOREARM FREE FROM ERYTHEMA OR SWELLING. IVF OF NS AT 80ML/HR. INFUSING WELL. ON AIR MATTRESS. FEET ELEVATED ON PILLOWS. CALL LIGHT WITHIN EASY REACH OF LEFT HAND.
[2019-04-25 20:38] VITALS: BP 132/55
--- NOTE | 2019-04-25 22:26 | NUR ---
PASSED SOFT STOOL. HYGIENE NEEDS ATTENDED TO WITH ASSISTANCE FROM LAVELLE SCOTT. HOB KEPT ELEVATED 30 DEG. TURNED AND REPOSITIONED. BREATHING UNLABORED. DAUGHTER IN ROOM.
--- NOTE | 2019-04-25 23:32 | NUR ---
EYES CLOSED, BREATHING EVEN AND UNLABORED ON 2LPM OF O2 VIA NC. IVF INFUSING WELL. HOB KEPT ELEVATED 30 DEG. CALL LIGHT WITHIN EASY REACH. BED ALARM ON.
--- NOTE | 2019-04-26 00:04 | NUR ---
GASTRIC RESIDUAL < 5ML, REPLACED. STOPPED NG TUBE FEEDING. PT NPO FOR PROCEDURE THIS AM.
--- NOTE | 2019-04-26 02:16 | NUR ---
ENCOURAGED PT AMBULATE. NOTED PT IS COUGHING OCCASIONALLY. MINIMAL ASSISTANCE NEEDED TO AMBULATE. WAS 3/4 AROUND THE HALLWAY WHEN PT STATED HE NEEDED TO PASS STOOL. PT UNABLE TO HOLD, BROUGHT TO EMPTY ROOM, PT UNABLE TO HOLD STOOL, PASSED LOOSE STOOL. HYGIENE NEEDS ATTENDED TO. AFTER PT CLEANED, NOTED SCAB TO LEFT ELBOW IS OPEN. CLEANSED. PT AMBULATED BACK TO ROOM WITH MINIMAL ASSISTANCE FOR SAFETY.
[2019-04-26 05:46] VITALS: BP 125/65
--- NOTE | 2019-04-26 05:56 | NUR ---
EYES CLOSED, EASILY AWAKENED. BREATHING EVEN AND UNLABORED ON 2LPM OF O2 VIA NC. HOB KEPT ELEVATED 30 DEG. IVF INFUSING WELL TO RIGHT FOREARM. IV SITE FREE FROM ERYTHEMA OR SWELLING. NG TUBE REMAINED CLAMPED SINCE MIDNIGHT. CALL LIGHT WITHIN EASY REACH OF LEFT HAND.
[2019-04-26 06:26] LABS: BASOPHIL % 0.3 % (0-2); PLATELET COUNT 191 x10^3mcL (130-400); RED CELL DISTRIBUTION WIDTH 14.5 % (11.5-14.5)
[2019-04-26 07:02] LABS: CALCIUM 8.5 mg/dL (8.5-10.1); CARBON DIOXIDE 32.7 mmol/L (21-32); CHLORIDE SERUM 105 mmol/L (98-107); CREATININE SERUM 0.6 mg/dL (0.6-1.0); GLUCOSE SERUM 88 mg/dL (74-106); MAGNESIUM 1.8 mg/dL (1.8-2.4); PHOSPHOROUS 3.2 mg/dL (2.5-4.9); POTASSIUM SERUM 3.5 mmol/L (3.5-5.1); SODIUM SERUM 142 mmol/L (136-145)
--- NOTE | 2019-04-26 07:10 | NUR ---
AWAKE, ALERT. NON VERBAL. BED BATH BEING ADMINISTERED BY EDGAR COREA CHANGED. PT BREATHING EVEN AND UNLABORED ON 2LPM OF O2 VIA NC. NG TUBE CLAMPED. IVF INFUSING WELL. HOB KEPT ELEVATED 30 DEG. ENDORSED TO NURSE DEBBIE
--- NOTE | 2019-04-26 07:22 | NUR ---
RECEIVED PT FROM SHIFT NURSE ASLEEP BUT AROUSABLE. APPEARS IN NO ACUTE DISTRESS. NG TUBE IN PLACE. IV INTACT AND PATENT. FALL PRECAUTIONS IN PLACE. BED IN LOW POSITION. CALL LIGHT WITHIN REACH. WILL CONTINUE TO MONITOR.
--- NOTE | 2019-04-26 08:20 | NUR ---
GAVE REPORT TO GI LAB
[2019-04-26 09:30] VITALS: BP 126/78
--- NOTE | 2019-04-26 09:40 | NUR ---
RECEIVED REPORT, ASSUMING PT CARE RESPONSABILITY.
--- NOTE | 2019-04-26 09:50 | NUR ---
PT TAKEN TO GI LAB, ROUTE DELIVERER MADE AWARE PT PLACED ON PORTABLE MONITOR BY GI LAB TEAM. PT LEFT FLOOR FLOOR FREE OF ANY APPARENT DISTRESS.
--- NOTE | 2019-04-26 09:55 | NUR ---
PT LEFT FOR PROCEDURE
[2019-04-26 13:09] VITALS: BP 126/78
--- NOTE | 2019-04-26 13:10 | NUR ---
1250-PT BACK FROM GI LAB STATUS POST EGD. PT IS A/A ON O2 AT 3L/MIN VIA NC O2SAT 97%. PT IN NO VISIBLE DISCOMFORT. FAMILY AT BEDSIDE AWARE GT WAS UNABLE TO BE PLACED. RADIOLOGY AT BEDSIDE TAKING STAT CXR ORDERED BY DR. CUHN. 1310-DR. RHODES MADE AWARE THAT OF OPERATIVE REPORT FINDINGS AND CURRENT STATUS. MD STATED HE WOULD RESUME NGT FEEDING ONCE CXR RESULT WAS KNOW. FAMILY AT BEDSIDE MADE AWARE. CALL LIGHT IN REACH NEEDS, ATTENDED TO AND ANTICIPATED.
--- NOTE | 2019-04-26 13:13 | NUR ---
Follow-up Nutrition Assessment: 243T/B CHICO GARCIA HR FU Dx: Cough and SOB X 2 days PMHx: CVA (10 years ago), recent TIA, a-fib s/p pacemaker placement 10 years ago, HTN, GERD, HLD, COPD Labs: (04/26) BUN 5.0L Meds: Lanoxin, Tenormin, Zofran, zosyn Diet: NPO (procedure) (04/25) TF (NG) Jevity 1.2 @ 10ml/hr, goal 40 ml/hr, advance 10 ml Q4H, FWF 50ml Q4H PO Intake: 310 ml Weights: (04/20) 45 kg Skin: intact Jose Angel: 15 I/Os: (04/24) 2210/0 ml Edema: none GI: Last BM: 04/20 RDN Visit (04/26): Pt was not in the room as pt was scheduled for PEG tube placement. During bed huddles, Dr. Birmingham asked for bolus feeding recommendations. Recommendations were discussed with Dr. Zuñiga and he agreed to them. Estimated Nutritional Needs based on actual body weight of 45 kg Energy: 7586-4011 kcal/day (30-35 kcal/kg)- geriatric maintenance Protein: 45-54 g/d (1-1.2 g/kg) Fluid: 2149-2246 ml/ day (1ml/kcal) or per MD Nutrition Diagnosis 1. Inadequate protein energy intake related to failed swallow eval as evidenced by Pt meeting <80% estimated needs. (improving) 2. Underweight related to advanced age as evidenced by BMI of 19.5 kg/m2 (Geriatric underweight is <23 kg/m2) (ongoing) Intervention 1. Recommend increasing Jevity 1.2 to 50 ml/hr. FWF 90ml Q4H. This would provide 1440 kcal and 67g protein. 2. Bolus feeding recommendation: TF Jevity 1.2, 200ml Q4H, FWF 65ml Q4H (or per MD). Total tube feeding volume 1200ml. Provides 1440 kcal and 67g protein. Monitor/Evaluate Goal: Have pt meet at least 75% of estimated needs Monitor: TF intake/tolerance, Labs, GI function F/U in 2-3 days as high risk 04/28-
--- NOTE | 2019-04-26 13:21 | NUR ---
RECEIVED CRITICAL CXR FINDING RESULTS OF TOTAL OPACIFICATION OF LT HEMITHORAX. DR. RHODES REVIED RESULTS AND STATED HE WOULD CONTACT PLATEN PRESS OPERATOR APPRENTICE ON THE CASE. DR. RHODES TO NOTIFY DR. CHUN WELL. CONT TO MONITOR.
--- NOTE | 2019-04-26 14:45 | NUR ---
PT RESTING COMFORTABLE AT THIS TIME. NO VISIBLE DISCOMFORT O2 SAT 97% ON O2 AT 3.5L VIA NC. CALL LIGHT IN REACH NEEDS ATTENDED TO.
--- NOTE | 2019-04-26 18:00 | NUR ---
RESUMED TUBE FEEDING ORDER JEVITY 1.2 @10ML/HR WITH H20 FLUSHED ORDERED BY DR. RHODES AT 65ML/HR Q4HRS. MD TO ADJUST TF ORDER. WITH FLUSH WHEN HE IS ABLE TO ACCESS SYSTEM. PT GIVE ORDERED DOSE OF LASIX IVP. CALL LIGHT IN REACH NEEDS ATTENDED TO.
[2019-04-26 18:36] VITALS: BP 155/77
--- NOTE | 2019-04-26 18:41 | NUR ---
PT RESTING AT THIS TIME. WITH NO APPARENT DISTRESS REPOSITIONED TO RT SIDE. IVF TO 10ML/HR ORDERED. WITH AIRLOSS MATRESS IN PLACE. BED IN LOW POSITION CALL LIGHT IN REACH NEEDS ATTENDED TO.
--- NOTE | 2019-04-26 19:30 | NUR ---
EYES CLOSED, EASILY AWAKNES, ABLE TO ANSWER QUERIES ANSWERABLE BY YES/NO BY NODDING HEAD. SKIN WARM AND DRY TO TOUCH WITH RIGHT FACIAL DROOP/ RIGHT NAD CONTRACTURES, SUPPORTED WITH PILLOWS. NGT INTACT TO RIGHT NARES WITH NGT FEEDING OF JEVITY 1.2 AT 10ML/HR TO BE INCREASED 10ML/HR Q 4HS IF TOLERATED WITH A GOAL OF 50ML/HR. WILL CONTINUE TO MONITOR.
[2019-04-26 21:39] VITALS: BP 127/54
--- NOTE | 2019-04-26 22:00 | NUR ---
NO GASTRIC RESIDUAL NOTED. NGT FEEDING JEVITY 1.2 INCREASED TO 20ML/HR ORDERED. NO S/S OF ASPIRATION NOTED.
--- NOTE | 2019-04-27 | NUR ---
CONTINUES ON ATB IVPB FOR MANAGEMENT OF PNEUMONIA WITHOUT ADVERSE REACTION NOTED. IVF NS AT 10ML/HR VIA PERIPHERAL LINE AT THE RFA TOLERATING WELL. IV SITE CLEAR AND NO REDNESS NOTED. BED IN LOWETS POSITION FOR SAFETY.
[2019-04-27 04:04] VITALS: BP 111/62
[2019-04-27 06:29] LABS: BASOPHIL % 0.5 % (0-2); PLATELET COUNT 197 x10^3mcL (130-400); RED CELL DISTRIBUTION WIDTH 14.4 % (11.5-14.5)
--- NOTE | 2019-04-27 06:33 | NUR ---
NGT FEEDING TO 40ML/HR AT 0600 AMTHE GOAL RATE, NO GASTRIC RESIDUAL NOTED. NO S/S OF ASPIRATION NOTED. TURNED AND REPOSITIONED Q 2HRS FOR COMFORT. KEPT CLEAN AND DRY.
[2019-04-27 06:51] LABS: CALCIUM 8.7 mg/dL (8.5-10.1); CARBON DIOXIDE 39.2 mmol/L (21-32); CHLORIDE SERUM 100 mmol/L (98-107); CREATININE SERUM 0.7 mg/dL (0.6-1.0); GLUCOSE SERUM 128 mg/dL (74-106); MAGNESIUM 1.6 mg/dL (1.8-2.4); PHOSPHOROUS 3.5 mg/dL (2.5-4.9); POTASSIUM SERUM 3.2 mmol/L (3.5-5.1); SODIUM SERUM 141 mmol/L (136-145)
--- NOTE | 2019-04-27 07:19 | NUR ---
RECEIVED PT FROM SHIFT NURSE ASLEEP BUT AROUSABLE. RESP EVEN AND UNLABORED ON 3L NC. NG TUBE FEEDING IN PLACE AND TOLERATING WELL. IV INTACT AND PATENT. FALL PRECAUTIONS IN PLACE. BED IN LOW POSITION. CALL LIGHT WITHIN REACH. WILL CONTINUE TO MONITOR.
--- NOTE | 2019-04-27 07:26 | NUR ---
RECEIVED PT FROM SHIFT NURSE A/OX4. RESP EVEN AND UNLABORED ON 2L NC. ABD BINDER IN PLACE. IV INTACT AND PATENT. FALL PRECUATIONS IN PLACE. BED IN LOW POSITION. CALL LIGHT WITHIN REACH. WILL CONITNUE TO MONITOR.
[2019-04-27 09:04] VITALS: BP 143/59
--- NOTE | 2019-04-27 10:47 | NUR ---
PT ASLEEP BUT AROUSABLE. NO ACUTE DISTRESS NOTED. CALL LIGHT WITHIN REACH. WILL CONTINUE TO MONITOR.
--- NOTE | 2019-04-27 12:00 | NUR ---
PT ASLEEP IN BED BUT AROUSABLE. FAMILY MEMBER AT BEDSIDE. WILL CONTINUE TO MONITOR.
[2019-04-27 12:14] VITALS: BP 156/68
--- NOTE | 2019-04-27 16:18 | NUR ---
PT WAS SEEN FOR DYSPHAGIA. PT HAD COUGH FOR PUREE DIET INDICATING SEVERE RISK OF ASPIRATION. RECOMMENDATION\ NPO OR ALTERNATE MODE OF FEEDING
[2019-04-27 16:51] VITALS: BP 161/66
[2019-04-27 18:08] VITALS: BP 124/51
--- NOTE | 2019-04-27 18:11 | NUR ---
PT AWAKE AND NO ACUTE DISTRESS NOTED. RESP EVEN AND UNLABORED ON 3L NC. IV INTACT AND PATENT. TOLERATING NG TUBE FEEDING WELL. BED IN LOW POSITION. CALL LIGHT WITHIN REACH. WILL BE ENDORSED.
--- NOTE | 2019-04-27 20:00 | NUR ---
PT AWAKE AND NON VERBAL. SPONTANEOUS EYE MOVEMENT. LEFT FACIAL DROOP NOTED. RIGHT HAND CONTRACTURE NOTED. PATIENTS DAUGHTER AT BEDSIDE. PT WITH BREATH SOUNDS CLEAR. BREATHING EVEN AND UNLABORED ON ROOM AIR. BOWEL SOUNDS ACTIVE. PT WITH NGT NOTED ON THE RIGHT NARES INFUSING WITH JEVITY 1.2 AT 50 ML/HR WITH NO RESIDUAL OUT PUT NOTED. IV INTACT ON THE RIGHT FOREARM. MADE PT COMFORTABLE ON AIR MATTRESS. PLACED CALL LIGHT WITH IN REACH. WILL CONTINUE TO MONITOR.
[2019-04-27 20:24] VITALS: BP 137/54
--- NOTE | 2019-04-28 02:13 | NUR ---
PT RESTING WITH EYES CLOSED. NO DISTRESS AND DISCOMFORT NOTED. NGT WITH NO RESIDUAL OUTPUT NOTED. WILL CONTINUE TO MONITOR.
[2019-04-28 05:37] VITALS: BP 147/54
--- NOTE | 2019-04-28 06:04 | NUR ---
PT QUIET AND RESTING. NO SIGNIFICANT CHANGES NOTED. NGT INPLACE AND INFUSING ORDERED. MADE PT COMFORTABLE. WILL ENDORSE TO THE AM NURSE ACCORDINGLY.
[2019-04-28 06:32] LABS: CALCIUM 8.9 mg/dL (8.5-10.1); CARBON DIOXIDE 34.2 mmol/L (21-32); CHLORIDE SERUM 104 mmol/L (98-107); CREATININE SERUM 0.7 mg/dL (0.6-1.0); GLUCOSE SERUM 144 mg/dL (74-106); MAGNESIUM 2.5 mg/dL (1.8-2.4); PHOSPHOROUS 3.8 mg/dL (2.5-4.9); POTASSIUM SERUM 3.6 mmol/L (3.5-5.1); SODIUM SERUM 146 mmol/L (136-145)
[2019-04-28 06:35] LABS: BASOPHIL % 0.2 % (0-2); PLATELET COUNT 194 x10^3mcL (130-400); RED CELL DISTRIBUTION WIDTH 14.4 % (11.5-14.5)
--- NOTE | 2019-04-28 07:07 | NUR ---
RECEIVED PT FROM ENGINE TESTING SUPERVISOR NURSE. PT IN BED SLEEPING, AROUSABLE, RESP E/U ON NC AT 3 LPM. NO ACUTE DISTRESS NOTED. IV TO RFA W/ NO SIGNS OF INFILTRATION, IVF INFUSING WELL. NGT TO R NARE, RECEIVING JEVITY AT 50 ML/HR INFUSING WELL. BED IN LOWEST POSITION AND CALL LIGHT WITHIN REACH. WILL CONTINUNE TO MONITOR.
[2019-04-28 08:27] VITALS: BP 122/68
--- NOTE | 2019-04-28 12:25 | NUR ---
PT IN BED SLEEPING, AROUSBALE, RESP E/U ON NC AT 3LPM. NO ACUTE DISTRESS NOTED. BED IN LOWEST POSITION AND CALL LIGHT WITHIN REACH. WILL CONTINUE TO MONITOR.
--- NOTE | 2019-04-28 13:23 | NUR ---
Follow-up Nutrition Assessment: 243/B CHICO GARCIA HR FU Dx: Cough and SOB X 2 days PMHx: CVA (10 years ago), recent TIA, a-fib s/p pacemaker placement 10 years ago, HTN, GERD, HLD, COPD Labs: (04/28) NA 146H, BG 144H, MG 2.5H Meds: Lanoxin, Tenormin, Zofran, zosyn Diet: TF (NG) Jevity 1.2 @ 10ml/hr, goal 50 ml/hr, advance 10 ml Q4H, FWF 50ml Q4H PO Intake: 310 ml Weights: (04/20) 45 kg Skin: intact Jose Angel: 14 I/Os: (04/27) 1505/ not documented Edema: none GI: Last BM: 04/28 RDN Visit (04/28): Patient was intubated with NG tube and looked underweight and emaciated. Patient's daughter was at bedside. 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 Patient has been started on Q4 Mucomyst and CPT with repeat chest X-ray pending. Video swallow eval scheduled for today morning. Per bed huddles, patient failed swallow eval. Dr. Birmingham was discussing possible plan to start PPN/TPN since patient is not a surgical candidate to place PEG. Estimated Nutritional Needs based on actual body weight of 45 kg Energy: 0117-7719 kcal/day (30-35 kcal/kg)- geriatric maintenance Protein: 45-54 g/d (1-1.2 g/kg) Fluid: 2039-3950 ml/ day (1ml/kcal) or per MD Nutrition Diagnosis 1. Inadequate protein energy intake related to failed swallow eval as evidenced by Pt meeting <80% estimated needs. (improving) 2. Underweight related to advanced age as evidenced by BMI of 19.5 kg/m2 (Geriatric underweight is <23 kg/m2) (ongoing) Intervention 1. Recommend continuing Jevity 1.2 @ 50 ml/hr. FWF 90ml Q4H. This would provide 1440 kcal and 67g protein. 2. Bolus feeding recommendation (If surgeon clears patient for PEG): TF Jevity 1.2, 200ml Q4H, FWF 65ml Q4H (or per MD). Total tube feeding volume 1200ml. Provides 1440 kcal and 67g protein. Monitor/Evaluate Goal: Have pt meet at least 75% of estimated needs Monitor: TF intake/tolerance, Labs, GI function F/U in 2-3 days as high risk 04/30-
--- NOTE | 2019-04-28 16:30 | NUR ---
DR. SENA IN TO EVAL PT. EXPLAINED PT'S STATUS MD STATED HE WOULD BE ABLE TO PLACE A PERCUTANEOUS JEJUNOSTOMY, BUT HE WOULD REQUIRE A PERCUTANEOUS JEJUNOSTOMY KIT AND CATHETER FOR PROCEDURE, STATE [facility] OR WOULD BE ABLE TO PROVIDE SPECIFIC KIT INFORMATION. HE ALSO STATED HE WOULD NOT EVAL PT UNTIL KIT WAS AVAILABLE AND ATTENDING HAD COMFIRM WITH FAMILY THAT THEY WOULD BE AGREABLE FOR THIS PROCEDURE. CALLED [employer] [facility] [employer] TO MAKE AWARE OF EQUIPMENT REQUEST BY DR. NATHEN DOWNEY TO F/U ON KIT AND CATHETER. DR. RHODES PAGED TO DISCUSS SURGEONS REQUEST, AWAITING CALL BACK.
[2019-04-28 17:44] VITALS: BP 94/61
--- NOTE | 2019-04-28 19:19 | NUR ---
PT IN BED SLEEPING, AROUSABLE, RESP E/U ON NC AT 3LPM. NO ACUTE DISTRESS NOTED. TUBE FEEDING AT 50ML/HR INFSING WELL. BED IN LOWEST POSITION AND CALL LIGHT WITHIN REACH. WILL ENDORSE TO ONCOMING NURSE.
--- NOTE | 2019-04-28 20:00 | NUR ---
RECEIVED PT IN BED, AWAKE AND ALERT. NON VERBAL , WITH LT FACIAL DROOP. RESP. EVEN AND UNLABORED. [address], SAT. NO ACUTE DISTRESS NOTED. NO TELE, NO SIGNS OF ANY DISCOMFORT NOTED AT THIS TIME. NGT TO RT NARE, ON NGT FEEDING, JEVITY 1.2 AT 50ML/HR, ABDIRIZAK. WELL. NO RESIDUAL NOTED AT THIS TIME. HOB ELEVATED. ON AIR MATTRESS, WITH RT SIDED WEAKNESS, TURNED AND REPOSITIONED FOR COMFORT. IVF, NS AT 10ML/HR, INTACT AND INFUSING VIA RFA, SITE CLEAR. CALL LIGHT WITHIN REACH. WILL CONTINUE TO MONITOR.
[2019-04-28 20:45] VITALS: BP 148/48
--- NOTE | 2019-04-28 23:07 | NUR ---
INCONT. OF URINE, CLEANED AND KEPT COMFORTABLE. WILL CONTINUE TO MONITOR.
--- NOTE | 2019-04-29 01:15 | NUR ---
RESTING QUIETLY WITH EYES CLOSED, APPEARS ASLEEP, EASILY AROUSABLE. RESP. EVEN AND UNLABORED.NO ACUTE DISTRESS NOTED. ABDIRIZAK. NGT FEEDING, NO RESIDUAL NOTED. WILL CONTINUE TO MONITOR.
[2019-04-29 05:27] VITALS: BP 140/54
--- NOTE | 2019-04-29 06:17 | NUR ---
AFEBRILE AND VITAL SIGNS STABLE. RESP. EVEN AND UNLABORED. [address], NO ACUTE DISTRESS NOTED.SLEPT WELL, NO EVIDENCE OF ANY DISCOMFORT NOTED. DUE MEDS GIVEN ORDERED, ABDIRIZAK. WELL. ABDIRIZAK. NGT FEEDING, JEVITY 1.2 AT 50ML/HR, MIN. RESIDUAL NOTED. IVF INTACT AND INFUSING WELL, SITE CLEAR. TURNED AND REPOSITIONED Q2HRS AND PRN FOR COMFORT. KEPT COMFORTABLE. ALL NEEDS ATTENDED TO. WILL CONTINUE TO MONITOR.
--- NOTE | 2019-04-29 07:10 | NUR ---
RECEIVED PT FROM DROP WIRER NURSE. PT IN BED SLEEPING, AROUSABLE, RESP E/U ON NC AT 3 LPM. NO ACUTE DISTRESS NOTED. IV TO RFA W/ NO SIGNS OF INFILTRATION, IVF INFUSING WELL. NGT TO R NARE, RECEIVING JEVITY 1.2 AT 50ML/HR, INFUSING WELL. BED IN LOWEST POSITION AND CALL LIGHT WITHIN REACH. WILL CONTINUE TO MONITOR.
[2019-04-29 08:50] VITALS: BP 130/58
[2019-04-29 16:54] VITALS: BP 147/60
--- NOTE | 2019-04-29 17:28 | NUR ---
PT IN BED SLEEPING, AROUSBALE, RESP E/U ON NC AT 3 LPM. NO ACUTE DISTRESS NOTED. IV TO RFA W/ NO SIGNS OF INFILTRATION, IVF INFUSING WELL. NGT TO R NARE PATENT AND INTACT, NO GASTIC RESIDUAL NOTED, JEVITY 1.2 INFUSING WELL AT 50 ML/HR. BED IN LOWEST POSITION AND CALL LIGHT WITHIN REACH. WILL CONTINUE TO MONITOR.
--- NOTE | 2019-04-29 19:15 | NUR ---
RECEIVED REPORT FROM LIDIA CASTRO. ALL QUESTIONS ANSWERED AND ADDRESSED. WILL RESUME CARE OF PT.
--- NOTE | 2019-04-29 19:15 | NUR ---
RECEIVED PT RESTING BUT AROUSABLE. NONVERBAL BUT ABLE TO GESTURE IN RESPONSE TO QUESTIONS. DENIES HEADACHE, SOB, OR CP. PERRL. L FACIAL DROOP NOTED. ON 3LPM NASAL CANNULA. BREATHING E/U. CLEAR LUNG SOUNDS AUSCULTATED TO BUL, DIM TO BLL. NO SIGNS OF RESP DISTRESS NOTED. TRACHEA MIDLINE. NO JVD PRESENT. ABD IS SOFT AND FLAT. NO EDEMA NOTED. SKIN IS WARM/DRY TO TOUCH, PALE IN COLOR. R NARE NGT INTACT AND SECURED WITH JEVITY 1.2 TUBE FEEDING INFUSING @ 50ML/HR. NO S/S OF ASPIRATION. INCONTINENT OF URINE. ECCHYMOSIS NOTED TO BUE. ON AIR MATTRESS. R HAND CONTRACTURE NOTED. JOINTS INTACT, NO JOINT SWELLING NOTED. R FA PIV INTACT, PORT PATENT, DRESSING CDI. NS INFUSING @ 10 ML/HR. CALL LIGHT WITHIN REACH, X3 SIDE RAILS UP, BED ALARM ON, BED IN LOWEST POSITION. FAMILY AT BEDSIDE.
[2019-04-29 19:52] VITALS: BP 153/67
--- NOTE | 2019-04-29 22:51 | NUR ---
PT RESTING AND COMFORTABLE. REMAINS ON 3LPM NASAL CANNULA. BREATHING EVEN AND UNLABORED. NO SIGNS OF RESP DISTRESS NOTED. REMAINS ON AIR MATTRESS. X3 SIDE RAILS UP, BED ALARM ON, BED IN LOWEST POSITION, CALL LIGHT WITHIN REACH.
--- NOTE | 2019-04-30 01:38 | NUR ---
PT REMAINS RESTING AND COMFORTABLE. BREATHING E/U. NO ACUTE CHANGES NOTED. AIR MATTRESS REMAINS IN PLACE. R NARE NGT INTACT AND SECURED. JEVITY 1.2 TUBE FEEDING REMAINS @ 50CC/HR. TOLERATING WELL. NO S/S OF ASPIRATION. WILL CONT TO MONITOR.
--- NOTE | 2019-04-30 03:59 | NUR ---
PT RESTING AND COMFORTABLE. EASILY AROUSABLE. DENIES PAIN. REMAINS ON 2LPM NASAL CANNULA. BREATHING E/U. NO ACUTE CHANGES AT THIS TIME. WILL CONT TO MONITOR.
[2019-04-30 05:49] VITALS: BP 123/57
--- NOTE | 2019-04-30 06:13 | NUR ---
PT RESTING BUT AROUSABLE. NONVERBAL BUT ABLE TO GESTURE AND FOLLOW COMMANDS. L FACIAL DROOP REMAINS. R SIDED WEAKNESS AND R HAND CONTRACTURE REMAINS. ON 2LPM NASAL CANNULA. BREATHING E/U. NO SIGNS OF RESP DISTRESS NOTED. L NARE NGT INTACT AND SECURD. JEVITY 1.2 @ 50CC/HR INFUSING. TOLERATING WELL. GRV=0. SKIN WARM/DRY TO TOUCH, PALE IN COLOR. MOD PULSES TO BUE. CAP REFILL <3 SEC. NO EDEMA NOTED. PIV TO R FOREARM INTACT, PORT PATENT, DRESSING CDI. NS INFUSING @ 10 ML/HR. AIR MATTRESS IN PLACE, SCD TO BLE, X3 SIDE RAILS UP, CALL LIGHT WITHIN REACH, BED IN LOWEST POSITION. WILL ENDORSE CARE TO ONCOMING RN.
--- NOTE | 2019-04-30 07:11 | NUR ---
RECEIVED PT FROM LOBSTER FISHERMAN NURSE. PT IN BED SLEEPING, AROUSABLE, RESP E/U ON NC AT 3 LPM. NO ACUTE DISTRESS NOTED. IV TO RFA W/ NO SIGNS OF INFILTRATION, IVF INFUSING WELL. NGT TO R NARE PATENT AND INTACT, RECEIVING JEVITY 1.2 AT 50 ML/HR INFUSING WELL. BED IN LOWEST POSITION AND CALL LIGHT WITHIN REACH. WILL CONTINUE TO MONITOR.
[2019-04-30 07:32] VITALS: BP 151/59
--- NOTE | 2019-04-30 11:15 | NUR ---
PT RESTING IN BED. NO ACUTE DISTRESS NOTED. PT DENIES PAIN OR SOB W/ GESTURES. NO GASTRIC RESIDUAL NOTED TO NGT AT THIS TIME, FEEDING INFUSING WELL. BED IN LOWEST POSITON AND CALL LIGHT DERIK REACH. WILL CONTINUE TO MONITOR.
--- NOTE | 2019-04-30 16:00 | NUR ---
TUBE FEEDING SET REPLACED. NO GASTRIC RESIDUAL NOTED. JEVITY 1.2 INFUSING WELL AT 50 ML/HR. WILL CONTINUE TO MONITOR.
[2019-04-30 17:15] VITALS: BP 168/66
--- NOTE | 2019-04-30 17:30 | NUR ---
PT RESTING IN BED, RESP E/U ON NC AT 2 LPM. PT GESTURED THAT SHE DOES NOT FEEL PAIN OR SOB AT THIS TIME. IV TO RFA W/ NO SIGNS OF INFILTRATION, IVF INFUSING WELL. NGT TO R NARE PATENT AND INTACT, NO GASTRIC RESIDUAL NOTED, JEVITY 1.2 INFUSING WELL AT 50 ML/HR. BED IN LOWEST POSITION AND CALL LIGHT WITHIN REACH. FAMILY MEMBER AT BEDSIDE. WILL ENDORSE TO ONCOMING NURSE.
--- NOTE | 2019-04-30 19:58 | NUR ---
RECEIVED PT FROM PREVIOUS SHIFT. NONVERBAL. NG-TUBE TO R NARE SECURE, JEVITY INFUSING AT 50ML/HR, GOAL RATE, <5ML RESIDUAL NOTED AND REPLACED. MEDSURG. L CHEST PACEMAKER NOTED. NO INDICATIONS OF PAIN. L FACIAL DROOP NOTED. R SIDED WEAKNESS OBSERVED, PT ABLE TO ASSIST WITH TURNING. NO S/S ACUTE DISTRESS. IV SITE CDI, NO ERYTHEMA OR EDEMA. CALL LIGHT WITHIN REACH, AIR MATTRESS IN PLACE, WILL CONTINUE TO MONITOR.
[2019-04-30 20:15] VITALS: BP 123/63
--- NOTE | 2019-05-01 01:13 | NUR ---
PT RESTING IN BED. BREATHING E/U ON 2L NC. NO S/S ACUTE DISTRESS. NO SIGNS OF PAIN. CALL LIGHT WITHIN REACH. SAFETY MEASURES IN PLACE. WILL CONTINUE TO MONITOR.
--- NOTE | 2019-05-01 06:03 | NUR ---
PT HAD RESTFUL NIGHT. NO S/S ACUTE DISTRESS. BREATHING E/U. RESIDUAL CHECKED, NONE NOTED, JEVITY FEEDING STILL INFUSING AT GOAL RATE. ALL NEEDS MET AND ATTENDED TO. NO CHANGES OVERNIGHT. NO UPDATE ON POSSIBLE PEG TUBE PLACEMENT PROCEDURE TODAY WITH DR. SENA, WAITING FOR ORDERS. IV SITE CDI, IVF INFUSING WELL. SAFETY MEASURES IN PLACE. WILL ENDORSE CARE TO ONCOMING SHIFT.
[2019-05-01 06:21] VITALS: BP 113/68
[2019-05-01 07:08] LABS: BASOPHIL % 0.4 % (0-2); PLATELET COUNT 185 x10^3mcL (130-400); RED CELL DISTRIBUTION WIDTH 14.5 % (11.5-14.5)
--- NOTE | 2019-05-01 07:20 | NUR ---
PT AWAKE AND ALERT.NON-VERBAL.NO SIGNS OF PAIN.LUNG SOUND DIM ON THE BASES.PT NONE TELE.IVF 1/2 NS GOING AT 75 ML/HR INFUSING WELL.R NARE WITH NGT WITH FEEDING AT 50 ML/HR.RESIDUAL CHECKED=0. ON ASPIRATION PRECAUTION.HOB AT 30 DEG ANGLE.ALSO FREQUENT TURNS IMPLEMENTED.ON AIR MATRESS TO PROTECT SKIN INTEGRITY.R HAND CONTRACTED.FREQUENT CHECKS IMPLEMENTED.WILL CONTINUE TO MONITOR PT.
[2019-05-01 07:21] LABS: CALCIUM 9.6 mg/dL (8.5-10.1); CARBON DIOXIDE 32.6 mmol/L (21-32); CHLORIDE SERUM 104 mmol/L (98-107); CREATININE SERUM 0.7 mg/dL (0.6-1.0); GLUCOSE SERUM 146 mg/dL (74-106); PHOSPHOROUS 3.9 mg/dL (2.5-4.9); POTASSIUM SERUM 3.7 mmol/L (3.5-5.1); SODIUM SERUM 147 mmol/L (136-145)
[2019-05-01 08:50] VITALS: BP 136/65
--- NOTE | 2019-05-01 10:30 | NUR ---
INFORMED BY [facility] THAT PT AND FAMILY REFUSED SURGERY. WILL INFORM THE DOCTOR.
--- NOTE | 2019-05-01 13:23 | NUR ---
Follow-up Nutrition Assessment: 243/B CHICO GARCIA HR FU Dx: Cough and SOB X 2 days PMHx: CVA (10 years ago), recent TIA, a-fib s/p pacemaker placement 10 years ago, HTN, GERD, HLD, COPD Labs: (05/01) NA 147H, BG 146H Meds: Lanoxin, Zofran, zosyn Diet: NPO (possible PEG tube placement) (04/26-05/01) Jevity 1.2 @ 50 ml/hr, FWF 50ml Q4H PO Intake: NPO Weights: (04/20) 45 kg Skin: ecchymosis to BUE, erythema to buttocks Jose Angel: 14 I/Os: (04/30) 1520/ 100 Edema: none GI: Active bowel sounds, no abd pain Last BM: 04/30 RDN Visit (05/01): Patient has an NG tube and was being taken for CT scan. In bed huddles, Dr. [place] mentioned that if patiemt gets the PEG tube, Bolus feedings will be continued at home. Per Progress note (04/30): Pt underwent repeat swallow evaluation and failed. Dr. Rob planning for gastrostomy tube placement on Wednesday. Per consultation note (05/01) by Dr. Neil, possible surgical jejunostomy tube placement. Informed Dr. Mauro that bolus feedings would not be possible with jenunostomy tube. Estimated Nutritional Needs based on actual body weight of 45 kg Energy: 3534-3619 kcal/day (30-35 kcal/kg)- geriatric maintenance Protein: 45-54 g/d (1-1.2 g/kg) Fluid: 0034-5882 ml/ day (1ml/kcal) or per MD Nutrition Diagnosis 1. Inadequate protein energy intake related to failed swallow eval as evidenced by Pt meeting <80% estimated needs. (improving) 2. Underweight related to advanced age as evidenced by BMI of 19.5 kg/m2 (Geriatric underweight is <23 kg/m2) (ongoing) Intervention 1. Recommend continuing Jevity 1.2 @ 50 ml/hr. FWF 90ml Q4H. This would provide 1440 kcal and 67g protein. 2. Bolus feeding recommendation (If surgeon clears patient for PEG): TF Jevity 1.2, 200ml Q4H, FWF 65ml Q4H (or per MD). Total tube feeding volume 1200ml. Provides 1440 kcal and 67g protein. 3. In case of PEJ placement, continue Jevity 1.2 @ 50ml/hr. FWF 90 mlQ4H. Monitor/Evaluate Goal: Have pt meet at least 75% of estimated needs Monitor: TF intake/tolerance, Labs, GI function F/U in 2-3 days as high risk 05/03-
--- NOTE | 2019-05-01 14:00 | NUR ---
INFORMED BY JONAH,AIR CONDITIONING MANAGER THAT PT WILL GO HOME TOMORROW WITH HOSPICE AND NGT WILL STAY.PT WILL BE PICKED UP AT 11 TOMORROW.WILL INFORM .
--- NOTE | 2019-05-01 14:45 | NUR ---
PAGED TO INFORM HIM OF THE PLAN.
--- NOTE | 2019-05-01 16:02 | NUR ---
INFORMED ABOUT PT AND FAMILY REFUSING SURGERY.PT WILL GO HOME WITH HOSPICE TOMORROW AT 11 AM.
[2019-05-01 17:22] VITALS: BP 153/60
--- NOTE | 2019-05-01 18:24 | NUR ---
NO SIGNIFICANT CHANGE NOTED.WILL ENDORSE TO NEXT SHIFT
--- NOTE | 2019-05-01 19:15 | NUR ---
REPORT RECEIVED FROM DAY SHIFT RN. PATIENT WAS SEEN AND IS RESTING COMFORTABLY IN BED. BREATHING EVEN ON 2L NC. NO SOB OR RESP DISTRESS NOTED. MED SURG PATIENT. PATIENT IS NONVERBAL BUT IS ABLE TO ANSWER QUESTIONS BY NODDING HER HEAD. DENIES CHEST PAIN AND PAIN. NGT TO THE RIGHT NARE WITH TUBE FEEDING JEVITY 1.2 @ 50ML/HR. IV TO THE RFA INFUSING. PATENT AND INTACT. NO REDNESS OR SWELLING NOTED. COMFORT AND SAFETY MEASURES MAINTAINED. BED IS LOCKED AND IN THE LOWEST POSITION. SIDE RAILS UP X2. CALL LIGTH IS WITHIN REACH. WILL CONTINUE TO MONITOR.
[2019-05-01 20:52] VITALS: BP 144/58
--- NOTE | 2019-05-02 00:55 | NUR ---
PATIENT IS RESTING IN BED WITH EYES CLOSED. NO DISTRESS NOTED. BREATHING EVEN ON 2L NC. NO S/S OF PAIN NOTED. TUBE FEEDING TO THE RIGHT NARE AT 50ML/HR. IV TO THE RFA INFUSING WELL. SAFETY MEASURES IN PLACE. HOB ELEVATED. CALL LIGHT IS WITHIN REACH. WILL CONTINUE TO MONITOR.
[2019-05-02 05:01] VITALS: BP 151/88
--- NOTE | 2019-05-02 06:48 | NUR ---
PATIENT SLEPT IN LONG INTERVALS THROUGHOUT THE NIGHT. NO ACUTE CHANGES NOTED. BREATHING EVEN ON 2L NC. NO DISTRESS NOTED. NO INDICATIONS IN PAIN THROUGHOUT THE NIGHT. IV TO THE RFA INFUSING WELL. RIGHT NARE NGT TUBE WITH CONTINUOUS FEEDING AT 50ML/HR. TOLERATING WELL. COMFORT AND SAFETY MEASURES MAINTAINED. CALL LIGHT IS WITHIN REACH. WILL ENDORSE CARE TO DAY SHIFT RN.
--- NOTE | 2019-05-02 08:11 | NUR ---
RECEIVED PT IN BED, AWAKE AND ALERT, NONVERBAL, CALM AND COOPERATE TO POC, NO APPARENT APREARANCE ACUTE DISTRESS/PAIN, PERRLA, TRACH AT MIDLINE, LUNG CTA, DIM BLL, ON 2L/MIN O2 VIA NC, 96% O2 SAT, LEFT CHEST PACEMAKER, PALP PULSE, NO EDEMA, CAP REFIL < 3 SEC, RIGHT SIDE WEAKNESS, ON LALM, RIGHT HAND CONTRACTED, INCONTINENT, SKIN D/W/I, DISCOLORATION TO BUE, ERRYTHEMA TO BUTTOCKS, NGT TO RIGHT NARE, INFUSING WELL AT RATE 50ML/HR, TOLERATED WELL, BS ACTIVE X 4, PIV TO RIGHT FA INFUSING WELL AT 75ML/HR 0.9% NS, IV PATENT WITH NO INFECTION NOTES, TURN Q2HR, ASPITRATION PRECAUTION FOLLOWED, HOB ELEVATED, BED AT LOW POSITION, CALL LIGHT WITHIN REACH, CONTINUE TO MONITOR
--- NOTE | 2019-05-02 08:20 | NUR ---
PT IN BED. SLEEPING, NO APARENT OF ACUTE DISTRESS/ SOB NOTED, NO S/S OF PAIN/ DISCOMFORT NOTED, MORNING MED GIVEN PER ORDER VIA NGT PER EMAR, TOLERATED WELL, NO ASE NOTED AT THIS TIME, CALL LIGHT IN TOUCH, BED AT LOW POSITION, ASPIRATION PRECAUTION APPLIED, CONTINUE TO MONITOR
--- NOTE | 2019-05-02 09:00 | NUR ---
D/C'D FEEDING .PT WILL BE PICKED-UP BY [facility] AT 11 AM.
[2019-05-02 09:19] VITALS: BP 154/68
[2019-05-02 09:26] VITALS: BP 154/68
--- NOTE | 2019-05-02 11:06 | NUR ---
I HAVE REVIEWED THE DATA COLLECTION BY MATTHEW GASTON (NAME):JOSE CARLIN RN ENTERED ON (DATE/TIME):05/02/19 8106 I CONCUR WITH THE DATA AND ANY EXCEPTIONS OR COMMENTS ARE LISTED BELOW:
--- NOTE | 2019-05-02 11:07 | NUR ---
PT IN BED, AWAKE AND RESPONSIVE TO VERBAL COMMAND, NO CURRENT APPARENT OF PAIN/DISTRESS, NO ACUTE RESP DISTRESS/SOB NOTED, ON O2 AT 2L/MIN VIA NC, IV REMOVED FROM LEFT FA, CATH TIP INTACT, NO ACTIVE BLEEDING TO IV SITE AT THIS TIME, PT IN NO ACUTE DISTRESS, [facility] VIA [facility]URNEY TO HOME VIA [facility] WITH O2, NGT AND TUBE FEEDING, DAUGHTER CALLED AND GAVE CONSENT TO THE DC
--- NOTE | 2019-05-02 11:21 | NUR ---
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
== END 2019-05-02 11:33 | disposition hospice, home (50) | DRG 177 ==
LOC: ED 13:24 → DU 15:50 → MU 15:50 → DU 17:28 → MU 04-27 15:16
PROVIDERS: Emergency Medicine; Internal Medicine; Internal Medicine Gastroenterology; ADMIT Family Medicine
PROC: 0DJ08ZZ Inspection of Upper Intestinal Tract, Via Natural or Artificial Opening Endoscopic (ICD-10-PCS; principal; 2019-04-26 09:45)
DX: J69.0 Pneumonitis due to inhalation of food and vomit (principal); J96.20 Acute and chronic respiratory failure, unspecified whether with hypoxia or hypercapnia; J96.21 Acute and chronic respiratory failure with hypoxia; J44.1 Chronic obstructive pulmonary disease with (acute) exacerbation; E44.0 Moderate protein-calorie malnutrition; J15.6 Pneumonia due to other Gram-negative bacteria; I69.991 Dysphagia following unspecified cerebrovascular disease; K44.9 Diaphragmatic hernia without obstruction or gangrene; K21.9 Gastro-esophageal reflux disease without esophagitis; Q40.2 Other specified congenital malformations of stomach; I48.91 Unspecified atrial fibrillation; I69.320 Aphasia following cerebral infarction; I10 Essential (primary) hypertension; R13.10 Dysphagia, unspecified; E78.5 Hyperlipidemia, unspecified; Z68.20 Body mass index [BMI] 20.0-20.9, adult; Z95.0 Presence of cardiac pacemaker; Z66 Do not resuscitate
CPT/HCPCS: 43235; 83880; 92526-GN; 92610; 92611-GN; G0378; J0132; J0696; J1160; J1200; J1610; J1940; J2250; J2310; J2405; J2543; J3010; J3475; J3490; J7030; J7040; J7620; Q0092